=== PATIENT | male | born 1975 ===

== ENCOUNTER 2021-03-03 08:46 | Outpatient (REF) | payer BC, SELFPAY ==
--- NOTE | ~2021-03-03 | XR_ITS ---
EXAMINATION: XR ELBOW, RIGHT CLINICAL INFORMATION: Right elbow pain. Lateral epicondylitis. COMPARISON: None TECHNIQUE: AP, lateral, and oblique views of the right elbow. FINDINGS: There is no visible acute fracture, dislocation or abnormal joint effusion. There is small fine bone fragments adjacent to the lateral and medial epicondyles, XR/XR elbow RT min 3V IMPRESSION: Small bone fragments adjacent to medial lateral epicondyles likely old injury. If patient has superior lateral epicondylitis further evaluation with MRI as an outpatient can be helpful.
== END 2021-03-03 08:47 | disposition home or self-care (01) ==
LOC: HO.HMGCX 08:46
PROVIDERS: PCP Internal Medicine; Visit Provider Nurse Practitioner Family
DX: M25.521 Pain in right elbow (principal); M77.10 Lateral epicondylitis, unspecified elbow
CPT/HCPCS: 73080

== ENCOUNTER → 2021-03-10 07:58 | Outpatient (BNVA) | payer BC, SELFPAY | PROVIDERS: PCP Internal Medicine; Visit Provider Physician Assistant | DX: M77.10 Lateral epicondylitis, unspecified elbow (principal); M25.521 Pain in right elbow | CPT/HCPCS: 20550; J1020 ==

== ENCOUNTER 2021-04-24 14:58 | Outpatient (REF) | payer BC, SELFPAY ==
[2021-04-24 15:20] LABS: MANUAL DIFF FLAG NO
[2021-04-24 15:27] LABS: Basophils Absolute Auto 0.1 X10*3/uL (0.0-0.2); Basophils Percent Auto 0.4 % (0-2); Eosinophils Absolute Auto 0.5 X10*3/uL (0.0-0.4); Eosinophils Percent Auto 4.1 % (0-4); Hematocrit 45.3 % (42-52); Hemoglobin 15.2 g/dl (14.0-18.0); Imm Gran Abs Auto 0.06 X10*3/uL (0.00-0.03); Imm Gran Pct Auto 0.5 % (0.0-0.4); Lymphocytes Absolute Auto 2.8 X10*3/uL (1.2-4.9); Lymphocytes Percent Auto 23.1 % (20-40); Mean Corpuscular HGB Conc 33.6 g/dl (31.0-36.0); Mean Corpuscular Hemoglobin 29.9 pg (27.0-33.0); Mean Corpuscular Volume 89.2 fL (80-98); Mean Platelet Volume 10.6 fL (9.4-12.4); Monocytes Percent Auto 8.4 % (2-11); Neutrophils Absolute Auto 7.7 X10*3/uL (2.0-8.3); Neutrophils Percent Auto 63.5 % (45-73); Platelet Count 209 X10*3/uL (160-400); Red Blood Count 5.08 X10*6/uL (4.60-5.80); Red Cell Distribution Width 13.4 % (11.0-16.0); White Blood Count 12.2 X10*3/uL (4.8-10.8)
[2021-04-24 15:36] LABS: Estimated Average Glucose 229 mg/dL; Hemoglobin A1c % 9.6 %
[2021-04-24 16:12] LABS: Alanine Aminotransferase 31 U/L (0-40); Albumin Level 4.1 g/dL (3.5-5.0); Alkaline Phosphatase 92 U/L (39-117); Anion Gap 13 (12-20); Aspartate Amino Transferase 24 U/L (5-37); Bilirubin Total 0.5 mg/dL (0.0-1.0); Blood Urea Nitrogen 14 mg/dL (9-16); Calcium 9.3 mg/dL (8.4-10.2); Carbon Dioxide 26 mmol/L (22-29); Chloride 103 mmol/L (96-108); Cholesterol 181 mg/dL; Estimated Glomerular Filt Rate > 60; Glucose Random 222 mg/dL (60-115); HDL Cholesterol 26 mg/dL; LDL Cholesterol Calculated 88 mg/dl; Sodium 138 mmol/L (135-145); Total Protein 7.2 g/dL (6.5-8.0); Triglycerides 337 mg/dL
[2021-04-24 16:18] LABS: B Type Natriuretic Peptide < 10 pg/mL (<100)
[2021-04-24 16:35] LABS: Free T4 (Free Thyroxine) 0.94 ng/dL (0.71-1.85); Thyroid Stimulating Hormone 0.51 uIU/mL (0.32-4.0)
[2021-04-24 16:45] LABS: Folate 15.3 ng/mL (> or = 4.0); Vitamin B12 501 pg/mL (200-900)
== END 2021-04-24 14:59 | disposition home or self-care (01) ==
LOC: HO.LAB 14:58
PROVIDERS: PCP Internal Medicine; Visit Provider Internal Medicine
DX: E78.00 Pure hypercholesterolemia, unspecified (principal)
CPT/HCPCS: 36415; 80053; 80061; 82607; 82746; 83036; 83880; 84439; 84443; 85025

== ENCOUNTER 2021-05-31 08:31 | Emergency (ER) | payer BC, SELFPAY ==
--- NOTE | ~2021-05-31 | CT_ITS ---
EXAMINATION: CT HEAD WITHOUT CONTRAST CLINICAL INFORMATION: Left-sided facial droop COMPARISON: None TECHNIQUE: Contiguous axial imaging was performed from the skull base to vertex without intravenous administration of contrast. This CT examination was performed using dose optimization techniques as appropriate, variously including the following: *Automated exposure control *Adjustment of mA and/or kV according to patient size (this includes techniques or standardized protocols for targeted exams where dose is matched to indication/reason for exam; i.e. extremities or head) *Use of iterative reconstruction technique DLP: 843 mGy-cm FINDINGS: There is no evidence of acute intracranial hemorrhage or territorial infarction. No abnormal mass effect or midline shift is seen. [place] to white matter differentiation is well preserved. No extra-axial fluid collections are identified. The ventricles are normal in size. There is no abnormal attenuation within the brain parenchyma. The osseous structures and soft tissues are normal. The mastoid air cells and visualized portions of the paranasal sinuses are well aerated. CT/CT head/brain wo con IMPRESSION: No acute intracranial process seen.
[2021-05-31 08:35] VITALS: BP 147/92; PULSE 81; RESP 12; TEMP 36.9; O2SAT 99; BMI 40.6
--- NOTE | 2021-05-31 08:50 | ECG_ITS ---
Test Reason : WEAKNESS Blood Pressure : / mmHG Vent. Rate : 080 BPM Atrial Rate : 080 BPM P-R Int : 166 ms QRS Dur : 088 ms QT Int : 388 ms P-R-T Axes : 046 038 034 degrees QTc Int : 447 ms Normal sinus rhythm Normal ECG No previous ECGs available Referred By: Hue Encarnacion Electronically Signed By:JAMES MONTERROSO
[2021-05-31 08:51] VITALS: BP 162/88; PULSE 87; TEMP 36.8; O2SAT 99
--- NOTE | 2021-05-31 08:51 | ED.NEUROSD ---
HPI - Neuro Symptoms/Deficit General Chief Complaint: General Medical Stated Complaint: Numbness in face Time Seen by Provider: 05/31/21 08:46 Source: patient Mode of arrival: ambulatory Limitations: no limitations History of Present Illness HPI Narrative: 46 yo male with hx of HTN, HPL, s/p PCI with two stents on aspirin, GERD, hidradenitis - on chronic doxy 100mg BID, comes in with L sided total facial droop since Wednesday, no trauma, denies prior episodes, no other complaints, no known tick exposures Onset (ago): day(s) (4) Location: left face History of same: No Severity: severe Quality: weak Relieving factors: none Exacerbating factors: none Context: sudden onset On Anticoagulants: No Associated symptoms: denies other symptoms Treatments Prior to Arrival: none Related Data Home Medications Medication Instructions Recorded Confirmed aspirin 81 mg tablet,delayed 81 mg PO DAILY 03/03/21 04/24/21 release (Enteric Coated Aspirin) atorvastatin 40 mg tablet 40 mg PO DAILY 03/03/21 04/24/21 doxycycline hyclate 100 mg capsule 100 mg PO BID 03/03/21 04/24/21 metoprolol succinate 25 mg 25 mg PO DAILY 03/03/21 04/24/21 tablet,extended release 24 hr Previous Rx's Medication Instructions Recorded pantoprazole 40 mg tablet,delayed 40 mg PO DAILY #90 tab 03/20/21 release prednisone 20 mg tablet 60 mg PO DAILY 4 Days #12 tab 05/31/21 valacyclovir 1 gram tablet 1,000 mg PO BID 7 Days #14 tab 05/31/21 Allergies Allergy/AdvReac Type Severity Reaction Status Date / Time No Known Allergies Allergy Verified 04/24/21 13:47 Review of Systems Review of Systems: Constitutional : No Weight loss, No Fever, No Chills, No Fatigue, No Malaise ENT/Mouth : No sore throat, No Rhinorrhea Eyes: No Eye Pain, No Swelling, No Redness Cardiovascular : No Chest Pain, No SOB, No Dyspnea on Exertion, No Orthopnea, No Edema, No Palpitations Respiratory : No Cough, No Sputum, No Wheezing Gastrointestinal : No Nausea, No Vomiting, No Diarrhea, No Constipation, No abdominal Pain, No Hematochezia, No Melena Genitourinary : No Dysuria, No Urinary Frequency, No Hematuria, Musculoskeletal : No joint pain, No Myalgias, No Joint Swelling Skin : No Skin Lesions, No rash Neuro : pos Weakness, No Numbness, No Dizziness, No Headache Psych : No Anxiety/Panic, No Depression Heme/Lymph: No Bruising, No Bleeding,No Lymphadenopathy Endocrine : No Polyuria, No Polydipsia All other systems reviewed and are negative [facility] Past Medical History Attestation statement: The following information was validated with the patient. Medical History Axillary hidradenitis suppurativa CAD (coronary artery disease) GERD (gastroesophageal reflux disease) Hypercholesterolemia Hypertension Surgical History History of shoulder surgery History of tonsillectomy Left rotator cuff tear Status post hip surgery Stented coronary artery Family History Family History (Updated 04/24/21 @ 14:32 by Mohamud Muro MD) Father Heart attack Social History Social History Housing: House Alcohol intake: current Alcohol intake frequency: a few times a month Alcohol type: beer Patient Tobacco Use Status: Current everyday Tobacco user Tobacco use type: Cigarette Cigarette Packs Per Day: 1 Years Smoked: started 20 years e-Cigarette/Vaping Use: Never Used Second Hand Smoke Exposure: No Use of substances other than those prescribed or required for medical reasons: No Advance Directives: Yes Advance Directives Information Provided: Yes Advance Directives on File: No service: No Current occupational status: employed Current occupation: right handed Physical Exam Vital Signs: Vital Signs: Last Vital Signs Temp 98.3 F 05/31/21 08:51 Pulse 87 05/31/21 08:51 Resp 12 05/31/21 08:35 BP 162/88 H 05/31/21 08:51 Pulse Ox 99 05/31/21 08:51 Body Mass Index 40.6 Appearance: Alert. Oriented X3. No acute distress. Eyes: Pupils equal, round and reactive to light. ENT: Pharynx normal. TMs normal Neck: Normal inspection. Neck supple. CVS: Normal heart rate and rhythm. Pulses normal. Respiratory: No respiratory distress. Breath sounds normal. Abdomen: Soft and nontender. Skin: Skin warm and dry. Normal skin color. Normal skin turgor. Extremities: No lower extremity edema. No calf ttp Neuro: Oriented X 3. Total paralysis of L side of face involving forehead. No sensory deficit. Course Course Course Narrative: stable for DC, negative workup treat for bells palsy refer to PCP MDM - Neuro Symptoms/Deficit MDM Narrative Medical decision making narrative: 46 yo male with hx of HTN, HPL, s/p PCI with two stents on aspirin, GERD, hidradenitis - on chronic doxy 100mg BID, comes in with L sided total facial droop since Wednesday, no trauma, denies prior episodes, no other complaints, no known tick exposures at this time will obtain labs, lyme test, CT head though suspect bells palsy, start on steroids, already on doxy if this is lyme disease, discussed care of eye and mouth during flare. Lab Data Result diagrams: 05/31/21 09:16 05/31/21 09:16 Labs: Lab Results 05/31/21 05/31/21 Range/Units 09:16 09:16 WBC 12.1 H (4.8-10.8) X10*3/uL RBC 4.83 (4.60-5.80) X10*6/uL Hgb 14.4 (14.0-18.0) g/dl Hct 43.3 (42-52) % MCV 89.6 (80-98) fL MCH 29.8 (27.0-33.0) pg MCHC 33.3 (31.0-36.0) g/dl RDW 13.0 (11.0-16.0) % Plt Count 197 (160-400) X10*3/uL MPV 10.4 (9.4-12.4) fL Immature Gran % (Auto) 0.6 H (0.0-0.4) % Neut % (Auto) 63.9 (45-73) % Lymph % (Auto) 24.3 (20-40) % [place] % (Auto) 7.8 (2-11) % Eos % (Auto) 3.0 (0-4) % Baso % (Auto) 0.4 (0-2) % Lymph # (Auto) 2.9 (1.2-4.9) X10*3/uL [place] # (Auto) 1.0 (0.1-1.2) X10*3/uL Eos # (Auto) 0.4 (0.0-0.4) X10*3/uL Baso # (Auto) 0.1 (0.0-0.2) X10*3/uL Abs Immat Gran (auto) 0.07 H (0.00-0.03) X10*3/uL Absolute Neuts (auto) 7.8 (2.0-8.3) X10*3/uL Absolute Nucleated RBC 0.000 (0.0-0.012) X10*3/uL Nucleated RBC % (auto) 0.0 (0.0-0.2) /100WBC Sodium 139 (135-145) mmol/L Potassium 4.0 (3.3-5.1) mmol/L Chloride 105 (96-108) mmol/L Carbon Dioxide 27 (22-29) mmol/L Anion Gap 11 L (12-20) BUN 11 (9-16) mg/dL Creatinine 0.78 (0.5-1.4) mg/dL Estim Creat Clear Calc 167.2 Estimated GFR > 60 Random Glucose 146 H (60-115) mg/dL Calcium 8.9 (8.4-10.2) mg/dL Total Bilirubin 0.8 (0.0-1.0) mg/dL Direct Bilirubin 0.3 (0.0-0.5) mg/dL AST 18 (5-37) U/L ALT 26 (0-40) U/L Alkaline Phosphatase 81 (39-117) U/L Total Protein 6.6 (6.5-8.0) g/dL Albumin 3.7 (3.5-5.0) g/dL ECG Data Attestation: I personally reviewed and interpreted this ECG as follows: ECG interpretation date: 05/31/21 ECG interpretation time: 09:16 Interpretation: Rate: 80 Rhythm: NSR [place]: normal Normal P waves. Normal DAVEY. Normal QRS complex. ST T wave : normal no ALANA qTC: normal prior studies: no acute ischemia The study has been interpreted contemporaneously by me. Discharge Plan Discharge Clinical Impression: Grigsby's palsy Patient Disposition: Home, Self-Care Instructions: Grigsby Palsy (ED) Additional Instructions: return to ED for any worsening symptoms or concerns use lubricating eye drops to prevent irrritation continue your doxycycline, follow up with your PCP Prescriptions: New prednisone 20 mg tablet 60 mg PO DAILY 4 Days Qty: 12 RF: 0 valacyclovir 1 gram tablet 1,000 mg PO BID 7 Days Qty: 14 RF: 0 No Action pantoprazole 40 mg tablet,delayed release (DR/EC) 40 mg PO DAILY Qty: 90 RF: 0 doxycycline hyclate 100 mg capsule 100 mg PO BID RF: 0 atorvastatin 40 mg tablet 40 mg PO DAILY RF: 0 metoprolol succinate 25 mg tablet extended release 24 hr 25 mg PO DAILY RF: 0 aspirin [Enteric Coated Aspirin] 81 mg tablet,delayed release (DR/EC) 81 mg PO DAILY RF: 0 Referrals: Po,Mohamud Lynn MD [Primary Care Provider] - 2 days (Wednesday)
[2021-05-31] MEDS: predniSONE 20 MG TABLET 60 MG PO (08:56)
[2021-05-31 09:20] LABS: MANUAL DIFF FLAG NO
[2021-05-31 09:23] LABS: Basophils Absolute Auto 0.1 X10*3/uL (0.0-0.2); Basophils Percent Auto 0.4 % (0-2); Eosinophils Absolute Auto 0.4 X10*3/uL (0.0-0.4); Hematocrit 43.3 % (42-52); Hemoglobin 14.4 g/dl (14.0-18.0); Imm Gran Abs Auto 0.07 X10*3/uL (0.00-0.03); Imm Gran Pct Auto 0.6 % (0.0-0.4); Lymphocytes Absolute Auto 2.9 X10*3/uL (1.2-4.9); Lymphocytes Percent Auto 24.3 % (20-40); Mean Corpuscular HGB Conc 33.3 g/dl (31.0-36.0); Mean Corpuscular Hemoglobin 29.8 pg (27.0-33.0); Mean Corpuscular Volume 89.6 fL (80-98); Mean Platelet Volume 10.4 fL (9.4-12.4); Monocytes Percent Auto 7.8 % (2-11); Neutrophils Absolute Auto 7.8 X10*3/uL (2.0-8.3); Neutrophils Percent Auto 63.9 % (45-73); Platelet Count 197 X10*3/uL (160-400); Red Blood Count 4.83 X10*6/uL (4.60-5.80); White Blood Count 12.1 X10*3/uL (4.8-10.8)
[2021-05-31 09:59] LABS: Alanine Aminotransferase 26 U/L (0-40); Albumin Level 3.7 g/dL (3.5-5.0); Alkaline Phosphatase 81 U/L (39-117); Anion Gap 11 (12-20); Aspartate Amino Transferase 18 U/L (5-37); Bilirubin Direct 0.3 mg/dL (0.0-0.5); Bilirubin Total 0.8 mg/dL (0.0-1.0); Blood Urea Nitrogen 11 mg/dL (9-16); Calcium 8.9 mg/dL (8.4-10.2); Carbon Dioxide 27 mmol/L (22-29); Chloride 105 mmol/L (96-108); Creatinine Clr Calc Pharmacy 167.2; Estimated Glomerular Filt Rate > 60; Glucose Random 146 mg/dL (60-115); Sodium 139 mmol/L (135-145); Total Protein 6.6 g/dL (6.5-8.0)
[2021-05-31 10:10] VITALS: BP 153/91; PULSE 79; RESP 18; O2SAT 99
[2021-06-02 16:52] LABS: Lyme Abs Screen <0.90 index
== END 2021-05-31 10:13 | disposition home or self-care (01) ==
PROVIDERS: Emergency Provider Emergency Medicine; PCP Internal Medicine
DX: G51.0 Bell's palsy (principal); E11.9 Type 2 diabetes mellitus without complications; I10 Essential (primary) hypertension; E78.00 Pure hypercholesterolemia, unspecified; F17.210 Nicotine dependence, cigarettes, uncomplicated; Z79.02 Long term (current) use of antithrombotics/antiplatelets; Z79.82 Long term (current) use of aspirin; Z79.899 Other long term (current) drug therapy
CPT/HCPCS: 36415; 70450; 80048; 80076; 85025; 86617; 86618; 93005; 99284

== ENCOUNTER 2021-09-15 08:58 | Outpatient (REF) | payer BC, SELFPAY ==
[2021-09-15 09:18] LABS: MANUAL DIFF FLAG NO
[2021-09-15 09:59] LABS: Basophils Percent Auto 0.3 % (0-2); Eosinophils Absolute Auto 0.4 X10*3/uL (0.0-0.4); Eosinophils Percent Auto 3.1 % (0-4); Hematocrit 44.8 % (42.0-52.0); Hemoglobin 14.7 g/dl (14.0-18.0); Imm Gran Abs Auto 0.07 X10*3/uL (0.00-0.03); Imm Gran Pct Auto 0.6 % (0.0-0.4); Mean Corpuscular HGB Conc 32.8 g/dl (31.0-36.0); Mean Corpuscular Hemoglobin 29.7 pg (27.0-33.0); Mean Corpuscular Volume 90.5 fL (80.0-98.0); Mean Platelet Volume 10.4 fL (9.4-12.4); Monocytes Absolute Auto 0.9 X10*3/uL (0.1-1.2); Monocytes Percent Auto 7.1 % (2-11); Neutrophils Percent Auto 64.9 % (45-73); Platelet Count 228 X10*3/uL (160-400); Red Blood Count 4.95 X10*6/uL (4.60-5.80); Red Cell Distribution Width 13.3 % (11.0-16.0); White Blood Count 12.3 X10*3/uL (4.8-10.8)
[2021-09-15 10:26] LABS: Anion Gap 13 (12-20); Blood Urea Nitrogen 15 mg/dL (9-16); Calcium 8.9 mg/dL (8.4-10.2); Carbon Dioxide 27 mmol/L (22-29); Chloride 104 mmol/L (96-108); Estimated Glomerular Filt Rate > 60; Glucose Random 170 mg/dL (60-115); Potassium 4.5 mmol/L (3.3-5.1); Sodium 139 mmol/L (135-145)
[2021-09-15 10:44] LABS: HBS Num1 1.78 mIU/mL (0-7.99); HIV AB/AG Nonreactive (Nonreactive); HIV Num 1 0.06 S/CO (0.00-0.99); Hepatitis B Surface Antigen Negative (Negative); ~HepC Num1 0.12 S/CO (0.00-0.79); ~Hepatitis B Surface Antibody NONREACTIVE (Nonreactive); ~Hepatitis C Antibody Nonreactive (Nonreactive)
[2021-09-16 18:02] LABS: Hepatitis B Viral DNA Qn - cp <1.00 NOT DETECTED Log IU/mL (NOT DETECTED); Hepatitis B Viral DNA Qn-IU/mL <10 NOT DETECTED IU/mL (NOT DETECTED)
[2021-09-17 20:27] LABS: TS Negative Control Passed; TS Panel A 0; TS Panel B 2; TS Positive Control Passed; TSpotTB Negative (Negative)
== END 2021-09-15 08:59 | disposition home or self-care (01) ==
LOC: HO.LAB 08:58
PROVIDERS: PCP Internal Medicine; Visit Provider Dermatology
DX: L73.2 Hidradenitis suppurativa (principal); Z79.899 Other long term (current) drug therapy
CPT/HCPCS: 36415; 80048; 85025; 86481; 86706; 86803; 87340; 87389; 87517

== ENCOUNTER 2022-03-06 08:33 | Outpatient (REF) | payer BC, SELFPAY | END 2022-03-06 08:34 | LOC: HO.LNP 08:33 | PROVIDERS: PCP Internal Medicine; Referring Provider Internal Medicine; Visit Provider Surgery | DX: L02.31 Cutaneous abscess of buttock (principal); E66.01 Morbid (severe) obesity due to excess calories; I10 Essential (primary) hypertension; K21.9 Gastro-esophageal reflux disease without esophagitis; E11.65 Type 2 diabetes mellitus with hyperglycemia; E78.00 Pure hypercholesterolemia, unspecified; F17.210 Nicotine dependence, cigarettes, uncomplicated; F17.290 Nicotine dependence, other tobacco product, uncomplicated; Z68.41 Body mass index [BMI] 40.0-44.9, adult | CPT/HCPCS: 10060; 10061; 87071; 87205 ==

== ENCOUNTER → 2022-03-09 08:20 | Outpatient (BNVA) | payer BC, SELFPAY | PROVIDERS: PCP Internal Medicine; Referring Provider Internal Medicine; Visit Provider Surgery | DX: Z13.89 Encounter for screening for other disorder (principal) ==

== ENCOUNTER 2022-03-09 15:18 | Day surgery (SDC) | payer BC, SELFPAY ==
[2022-03-09] VITALS (11 sets, daily range): BP systolic 97–131; BP diastolic 51–72; PULSE 88–117; RESP 18–24; TEMP 36.1–37.8; O2SAT 93–99; BMI 42.4
--- NOTE | 2022-03-09 15:26 | MHC.SHP ---
Pre-Procedural Eval Section A Date of Service: 03/09/22 The patient is an INPATIENT: No Changes since office visit: Yes Patient answered all questions The History & Physical has been completed within 30 days and I have reviewed it.: Yes Section B Chief Complaint: Cutaneous abscess of buttock Allergies: Allergies Allergy/AdvReac Type Severity Reaction Status Date / Time No Known Allergies Allergy Verified 03/07/22 09:05 Plan Diagnosis/Plan: Unchanged I have reviewed the history and physical and performed a pertinent physical examination on my patient. No changes have occurred unless specified.
[2022-03-09] MEDS: ceFAZolin Sodium 3 GM in 0.9 % Sodium Chloride 100 ML IV (16:30)
--- NOTE | 2022-03-09 16:36 | P.CONAN_ITS ---
[facility] Active Problems Active Problems: All Active Problems (Updated 03/05/22 @ 15:29 by Yohan Wahl MD) Gluteal abscess (Acute) Grigsby's palsy (Acute) Type 2 diabetes mellitus with hyperglycemia (Acute) Obesity (Acute) Tobacco abuse (Acute) Hypercholesterolemia (Acute) Hypertension (Acute) Elbow pain, right (Acute) Epicondylitis, lateral (Acute) Past Medical History Medical History Axillary hidradenitis suppurativa CAD (coronary artery disease) GERD (gastroesophageal reflux disease) Hypercholesterolemia Hypertension Family History Family History Father Heart attack Family history of problems with anesthesia: No Surgical History Surgical History History of shoulder surgery History of tonsillectomy Left rotator cuff tear Status post hip surgery Stented coronary artery History of Problems with Anesthesia: No Social History Social History Housing: House Alcohol intake: current Alcohol intake frequency: a few times a month Alcohol type: beer Patient Tobacco Use Status: Current everyday Tobacco user Tobacco use type: Cigar Cigarette Packs Per Day: 1 Cigarettes Per Day: 20.0 Years Smoked: started 20 years e-Cigarette/Vaping Use: Never Used Second Hand Smoke Exposure: No Use of substances other than those prescribed or required for medical reasons: No Are you DNR?: No Advance Directives: No Advance Directives Information Provided: Yes service: No Current occupational status: employed Current occupation: right handed Meds Allergies Allergy/AdvReac Type Severity Reaction Status Date / Time No Known Allergies Allergy Verified 03/07/22 09:05 Home Medications Medication Instructions Recorded Confirmed Last Taken Type aspirin 81 mg tablet,delayed 81 mg PO DAILY 03/03/21 03/09/22 Unknown History release (Enteric Coated Aspirin) doxycycline hyclate 100 mg capsule 100 mg PO BID 03/03/21 03/09/22 Unknown History adalimumab 40 mg/0.4 mL 40 mg SUBCUT QWEEK 03/05/22 03/09/22 Unknown History subcutaneous pen kit (Humira(CF) Pen) Exam Exam Date and Time: March 09, 2022 1636 Height,Weight and Vital Signs: Height 6 ft Weight 141.974 kg Last Vital Signs Temp 98.1 F 03/09/22 16:16 Pulse 106 H 03/09/22 16:16 Resp 20 03/09/22 16:16 BP 117/69 03/09/22 16:16 Pulse Ox 95 03/09/22 16:16 Airway Mallampati Class: III TM Dist: >3cm Neck ROM: Full Heart: RRR Lungs: cTA Assessment and Plan Final Anesthetic Review Family History of Problems with Anesthesia: No History of Problems with Anesthesia: No NPO: Yes ASA Class: III and Emergency Final Preanesthetic Review: Meds/Allgs Chart Reviewed, Consent Obtained/Reviewed and Anes Risks/Benef Reviewed Patient Risk: Intermediate Procedure Risk: Low Anesthetic Plan Anesthetic Plan: GA Disposition: Standard PACU
[2022-03-09] MEDS: Heparin Sodium,Porcine 5,000 UNIT/ML VIAL 5000 UNIT SUBCUT (16:38)
[2022-03-09 16:42] LABS: Glucose, Whole Blood 234 mg/dL (60-115)
[2022-03-09] MEDS: Insulin Lispro 100 UNIT/ML 3 ML VIAL SUBCUT ×2 (16:47→22:31)
[2022-03-09] MEDS: Albuterol Sulfate (0.083%) 2.5 MG/3 ML VIAL.NEB INHALE (18:32)
[2022-03-09 19:05] LABS: Basophils Absolute Auto 0.1 X10*3/uL (0.0-0.2); Basophils Percent Auto 0.3 % (0-2); Eosinophils Absolute Auto 0.4 X10*3/uL (0.0-0.4); Eosinophils Percent Auto 2.6 % (0-4); Hematocrit 37.2 % (42.0-52.0); Hemoglobin 12.3 g/dl (14.0-18.0); Imm Gran Abs Auto 0.19 X10*3/uL (0.00-0.03); Imm Gran Pct Auto 1.3 % (0.0-0.4); Lymphocytes Absolute Auto 1.9 X10*3/uL (1.2-4.9); Lymphocytes Percent Auto 12.3 % (20-40); MANUAL DIFF FLAG SCAN; Mean Corpuscular HGB Conc 33.1 g/dl (31.0-36.0); Mean Corpuscular Hemoglobin 29.6 pg (27.0-33.0); Mean Corpuscular Volume 89.4 fL (80.0-98.0); Mean Platelet Volume 10.7 fL (9.4-12.4); Monocytes Percent Auto 13.1 % (2-11); Neutrophils Absolute Auto 10.6 x10*3/uL (2.0-8.3); Neutrophils Percent Auto 70.4 % (45-73); Platelet Count 159 X10*3/uL (160-400); Red Blood Count 4.16 X10*6/uL (4.60-5.80); Red Cell Distribution Width 13.1 % (11.0-16.0); SCAN SMEAR FLAG 1; White Blood Count 15.1 X10*3/uL (4.8-10.8)
[2022-03-09 19:11] LABS: Glucose, Whole Blood 195 mg/dL (60-115)
[2022-03-09 19:19] LABS: COVID-19 Test Negative (Negative); IDNOW Serial# 55D5AD1C
[2022-03-09 19:20] LABS: Alanine Aminotransferase 49 U/L (0-40); Albumin Level 3.1 g/dL (3.5-5.0); Alkaline Phosphatase 87 U/L (39-117); Anion Gap 12 (12-20); Aspartate Amino Transferase 33 U/L (5-37); Bilirubin Total 0.8 mg/dL (0.0-1.0); Blood Urea Nitrogen 11 mg/dL (9-16); Carbon Dioxide 22 mmol/L (22-29); Chloride 103 mmol/L (96-108); Creatinine Clr Calc Pharmacy 151.7; Estimated Glomerular Filt Rate > 60; Glucose Random 232 mg/dL (60-115); Potassium 4.1 mmol/L (3.3-5.1); Sodium 133 mmol/L (135-145); Total Protein 6.2 g/dL (6.5-8.0)
--- NOTE | 2022-03-09 19:23 | PM.OP ---
Brief Operative Note Date of Service: 03/09/22 Pre-op diagnosis: Left gluteal and perineal/perianal/perirectal abscess Post-op diagnosis: same Procedure: Incision and drainage, complex gluteal and perineal/perirectal abscess Surgeon: James Awad MD Anesthesia: GETA and local Was an Machining Supervisor used for this Procedure?: No Estimated blood loss (mL): 5 Pathology: none sent Condition: stable Disposition: observation
--- NOTE | 2022-03-09 19:25 | P.OP_ITS ---
Operative Note Operative Note Date of Service: 03/09/22 Narrative: Preop diagnosis: Left gluteal and perineal abscess Postop diagnose: Same Procedure complex incision and drainage with drain placement Surgeon: James Awad MD Anesthesia: General endotracheal Local: Lidocaine 1% with epi/bupivacaine 0.25% 50 50 mix EBL 5 cc Specimens: Culture of abscesses Indications: This is a 47-year-old gentleman with a history of type 2 diabetes, smoking, on who presented on Wednesday with what appeared to be an isolated left gluteal abscess near his pilonidal cyst. During incision and drainage, loculated abscesses were noted but the patient was clinically improved. However, over the weekend, after removing his packing, he had progression of pain in his perineum and came to the office for follow-up and was noted to have a large mass of inflammation involving his perineum and left medial buttock. Gross purulence was being expressed from the incision and drainage site as well as from the perineum so I recommended operative drainage since I could not adequately examine him in the office due to pain reasons and his body habitus. I reviewed the inherent risks of bleeding, infection, need for another procedure. He seemed understand and wanted to proceed. Procedure note: After an appropriate time-out, the patient was placed supine on the table. 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 He was induced in general endotracheal anesthesia administered with excellent effect. He was then carefully positioned in left lateral decubitus position with an axillary roll and padding of bony prominences. He was then secured to the table with multiple straps and tape. His right buttock was taped away from his left and he was prepped with Betadine. He was then draped in the usual manner for surgery. Preemptive local was infiltrated and the prior I and D site at the upper/mid anton cleft that was expressing pus. Cultures were obtained. Additional fluctuance inferior towards the anus was noted, aspiration with a 20 gauge needle confirmed additional purulence and additional local was infiltrated. A separate stab incision was made with the scalpel, a tonsil snap inserted and loculations were broken expressing more purulence. And the perineum in the midline, additional fluctuance was noted, and needle aspiration confirmed additional purulence. A 3rd I and D site was made with the scalp, a tonsil snap used to dissect deep and posteriorly and copious amounts of sterile saline were used which caused irrigation to come out of the other 2 I and D sites. The le ngth of the abscess pocket which was now all connected was approximately 16 cm. After the irrigation ran clear, a quarter-inch [place] was cut in 6 cm pieces which were placed deep into the subcutaneous tissues and sutured to the skin with 2-0 silk sutures. The area was inspected for hemostasis which was good, the perineum and buttocks carefully washed, dried fluffs and ABDs followed by mesh underwear were applied. Patient tolerated the procedure well and was sent to PACU in stable condition. At the request of the patient, I contacted his brother Femi at [phone] to apprise him of the operation. I also explained that given the patient's Humira, type 2 diabetes, and the degree of the infection, that we would be keeping him overnight to provide IV antibiotics since this is the type of infection that could progress. I have also obtained a consultation from the hospitalist who recommended addition of vancomycin to the Zosyn I had ordered.
[2022-03-09 19:27] LABS: SLIDE REVIEW VERIFIED
[2022-03-09 19:43] LABS: Lactic Acid 1.2 mmol/L (0.5-2.0)
--- NOTE | 2022-03-09 20:01 | PM.EVENT ---
Event Note Date of Service: 03/09/22 Event Note: The patient's lab show a normal lactic acid at 1.2. He has a leukocytosis to 15 K which is expected given the complex perineal and gluteal abscesses. No other significant electrolyte anomalies or found. Abnormal LFTs are likely secondary to his obesity and fatty liver, will trend. Given his normal lactic acid, his fever is likely secondary to his abscess and not sepsis. I do not clinically see an indication for blood culture given this normal response to incision and drainage of complex abscess.
[2022-03-09 20:38] LABS: Glucose, Whole Blood 244 mg/dL (60-115)
--- NOTE | 2022-03-09 20:43 | PHA.PROG ---
Admission Date/Time: 03/09/22 Indication: SKIN/SKIN STRUCTURE Weight in k.974 kg Adjusted body weight in K.3 [place] body weight in K.6 KG Obesity Dosing Indication % IBW: Serum Creatinine - Last 168 Hours 03/09/22 18:51 Creatinine 0.87 Estimated CrCl and GFR - Last 168 Hours 03/09/22 18:51 Estim Creat Clear Calc 151.7 Estimated GFR > 60 Vancomycin Loading Dose: 1500 MG X 1 Current Vancomycin Dosing Regimen: 1000 MG Q12H Vancomycin Monitoring using AUC goal of 400 - 600 range with trough as surrogate marker: PREDICTED AUC OF 444, TROUGH 12.2 Date and Time for next Vancomycin Level to be drawn: 03/11/22 @0700 Pharmacist Comments on Vancomycin Plan: OBESE MODEL USED Vancomycin dosing will take advantage of [employer] have it! as a clinical decision support tool that uses Bayesian modeling to calculate individual patient's pharmacokinetic parameters and forecast the patient's drug concentration time course with the target goal AUC 24 range of 400 - 600 mg/L/hr.
--- NOTE | 2022-03-09 20:51 | PHA.MEDREC ---
Pharmacy Consult ? Medication Reconciliation Pharmacy has completed the medication reconciliation. No remarkable issues.
[2022-03-09] MEDS: Lactated Ringers 1,000 ML 125 ML IVCONT (22:30)
[2022-03-09] MEDS: Docusate Sodium 100 MG CAPSULE 200 MG PO (22:30)
[2022-03-09] MEDS: Piperacillin Sodium/Tazobactam 3.375 GM in 0.9 % Sodium Chloride 50 ML IV (22:30)
[2022-03-10] VITALS: BP 104/52; PULSE 87; RESP 17; TEMP 37.1; O2SAT 99
[2022-03-10] MEDS: vancomycin HCL 1,500 MG in 0.9 % Sodium Chloride 500 ML 333.33 MG IV (01:21)
[2022-03-10] MEDS: Heparin Sodium,Porcine 5,000 UNIT/ML VIAL 5000 UNIT SUBCUT ×2 (01:24→05:47)
[2022-03-10 04:00] VITALS: BP 110/62; PULSE 77; RESP 17; TEMP 36.2; O2SAT 98
[2022-03-10] MEDS: Piperacillin Sodium/Tazobactam 3.375 GM in 0.9 % Sodium Chloride 50 ML IV ×2 (04:02→08:21)
[2022-03-10 05:16] LABS: Estimated Average Glucose 220 mg/dL; Hemoglobin A1c % 9.3 %
[2022-03-10 06:56] LABS: Basophils Percent Auto 0.3 % (0-2); Eosinophils Absolute Auto 0.5 X10*3/uL (0.0-0.4); Eosinophils Percent Auto 3.8 % (0-4); Hematocrit 37.9 % (42.0-52.0); Hemoglobin 12.3 g/dl (14.0-18.0); Imm Gran Abs Auto 0.21 X10*3/uL (0.00-0.03); Imm Gran Pct Auto 1.8 % (0.0-0.4); Lymphocytes Absolute Auto 1.6 X10*3/uL (1.2-4.9); Lymphocytes Percent Auto 13.6 % (20-40); MANUAL DIFF FLAG SCAN; Mean Corpuscular HGB Conc 32.5 g/dl (31.0-36.0); Mean Corpuscular Hemoglobin 29.4 pg (27.0-33.0); Mean Corpuscular Volume 90.7 fL (80.0-98.0); Mean Platelet Volume 10.8 fL (9.4-12.4); Monocytes Absolute Auto 1.6 X10*3/uL (0.1-1.2); Neutrophils Absolute Auto 8.1 x10*3/uL (2.0-8.3); Neutrophils Percent Auto 67.5 % (45-73); Platelet Count 149 X10*3/uL (160-400); Red Blood Count 4.18 X10*6/uL (4.60-5.80); Red Cell Distribution Width 13.1 % (11.0-16.0); SCAN SMEAR FLAG 1
[2022-03-10 07:13] LABS: Anion Gap 10 (12-20); Blood Urea Nitrogen 10 mg/dL (9-16); Calcium 8.2 mg/dL (8.4-10.2); Carbon Dioxide 28 mmol/L (22-29); Chloride 102 mmol/L (96-108); Creatinine Clr Calc Pharmacy 151.7; Estimated Glomerular Filt Rate > 60; Glucose Random 219 mg/dL (60-115); Potassium 4.2 mmol/L (3.3-5.1); Sodium 136 mmol/L (135-145)
[2022-03-10 07:14] VITALS: BP 122/66; PULSE 83; RESP 18; TEMP 36.3; O2SAT 98
[2022-03-10 07:20] LABS: Glucose, Whole Blood 203 mg/dL (60-115)
--- NOTE | 2022-03-10 07:22 | HE.PHANOTE ---
leslie bourgeois Continue current dose, SCR stable, trough due @0700 on 03/11
--- NOTE | 2022-03-10 07:30 | PM.PNGS ---
Subjective Subjective Date of Service: 03/10/22 Patient reports: no new complaints, feels better, flatus and no bowel movement Interval history: The patient reports resolution of the pain he was experiencing in the office yesterday morning. He reports some burning in his perineum. He has not been up to walk or shower. He otherwise denies any headache, visual changes, chest pain, abdominal pain, nausea or vomiting. No new complaints. Physical Exam Vital Signs: Vital Signs: Last Vital Signs Temp 97.3 F 03/10/22 07:14 Pulse 83 03/10/22 07:14 Resp 18 03/10/22 07:14 BP 122/66 03/10/22 07:14 Pulse Ox 98 03/10/22 07:14 BMI result Body Mass Index 42.4 Dressings are stained with bloody pus but intact Objective Data Active Medications Albuterol Sulfate (Albuterol Sulfate (0.083%) 2.5 Mg/3 Ml Vial.Neb) 2.5 mg INHALE Q2H PRN PRN Reason: Dyspnea Last Admin: 03/09/22 18:32 Dose: 2.5 mg Documented by: MILAN Atorvastatin Calcium (Atorvastatin Calcium 40 Mg Tablet) 40 mg PO DAILY [facility] Dextrose (Dextrose 50 % 25 Gm/50 Ml Syringe) 25 gm IVPUSH Q15M PRN; Protocol PRN Reason: per Hypoglycemia Standing Ord. Dextrose (Dextrose 50 % 25 Gm/50 Ml Syringe) 25 gm IVPUSH Q15M PRN; Protocol PRN Reason: per Hypoglycemia Standing Ord. Docusate Sodium (Docusate Sodium 100 Mg Capsule) 200 mg PO BID [facility] Last Admin: 03/09/22 22:30 Dose: 200 mg Documented by: MOODY Fentanyl (Fentanyl Citrate/Pf 100 Mcg/2 Ml Vial) 50 mcg IVPUSH Q5M PRN; Protocol PRN Reason: Pain, Severe (Pain Scale 7-10) Glucose (Glucose Gel 15 Gm Gel..Gram.) 15 gm PO Q15M PRN; Protocol PRN Reason: per Hypoglycemia Standing Ord. Glucose (Glucose Gel 15 Gm Gel..Gram.) 15 gm PO Q15M PRN; Protocol PRN Reason: per Hypoglycemia Standing Ord. Heparin Sodium (Porcine) (Heparin Sodium,Porcine 5,000 Unit/Ml Vial) 5,000 unit SUBCUT Q8H [facility] Last Admin: 03/10/22 05:47 Dose: 5,000 unit Documented by: TONEY Piperacillin Sod/Tazobactam (Sod 3.375 gm/ Sodium Chloride) 50 mls @ 100 mls/hr IV Q6H [facility] Last Infusion: 03/10/22 04:39 Dose: 0 mls/hr Documented by: TONEY Vancomycin HCl 1,000 mg/ (Sodium Chloride) 270 mls @ 270 mls/hr IV Q12H [facility] Lactated Ringer's (Lr) 1,000 mls @ 125 mls/hr IVCONT .Q8H [facility] Last Admin: 03/10/22 05:49 Dose: Not Given Documented by: TONEY Non-Admin Reason: IV Running Insulin Human Lispro (Insulin Lispro 100 Unit/Ml 3 Ml Vial) 0 unit SUBCUT QIDACHS [facility]; Protocol Last Admin: 03/09/22 22:31 Dose: 4 unit Documented by: MOODY Metoprolol Succinate (Metoprolol Succinate Er 25 Mg Tab.Er.24h) 25 mg PO BEDTIME [facility]; Protocol Ondansetron HCl (Ondansetron Hcl 4 Mg/2 Ml Vial) 4 mg IVPUSH ONCE PRN PRN Reason: Nausea and Vomiting Oxycodone HCl (Oxycodone Hcl Immed Release 5 Mg Tablet) 5 mg PO ONCE PRN PRN Reason: Pain, Severe (Pain Scale 7-10) Pharmacy Consult (Consult Rx Vancomycin Dosing) 1 each MISCELLANE DAILY PRN PRN Reason: Consult order Sodium Chloride (0.9 % Sodium Chloride Flush 3 Ml Syringe) 3 ml IVFLUSH QSALFT [facility] Last Admin: 03/10/22 01:25 Dose: Not Given Documented by: TONEY Non-Admin Reason: IV Running Sodium Chloride (0.9 % Sodium Chloride Flush 3 Ml Syringe) 3 ml IVFLUSH QSALFT [facility] Last Admin: 03/10/22 01:25 Dose: Not Given Documented by: TONEY Non-Admin Reason: IV Running Sodium Chloride (0.9 % Sodium Chloride Flush 3 Ml Syringe) 3 ml IVFLUSH QSHIFT [facility] Last Admin: 03/10/22 01:25 Dose: Not Given Documented by: TONEY Non-Admin Reason: IV Running Labs CBC & Chem 7: 03/10/22 06:32 03/10/22 06:32 Labs: Laboratory Results - last 24 hr 03/09/22 03/09/22 03/09/22 16:37 18:32 18:51 MCV MCH MCHC RDW Plt Count MPV Immature Gran % (Auto) Neut % (Auto) Lymph % (Auto) [place] % (Auto) Eos % (Auto) Baso % (Auto) Lymph # (Auto) [place] # (Auto) Eos # (Auto) Baso # (Auto) Abs Immat Gran (auto) Absolute Neuts (auto) Absolute Nucleated RBC Nucleated RBC % (auto) Smear Tech's Comments Anion Gap Estim Creat Clear Calc Estimated GFR POC Glucose 234 H 195 H Random Glucose Estimat Average Glucose 220 Hemoglobin A1c % 9.3 Lactic Acid Calcium Total Bilirubin AST ALT Alkaline Phosphatase Total Protein Albumin COVID-19 (LAURA) COVID-19 Tinychat 03/09/22 03/09/22 03/09/22 18:51 18:51 19:28 MCV 89.4 MCH 29.6 MCHC 33.1 RDW 13.1 Plt Count 159 L D MPV 10.7 Immature Gran % (Auto) 1.3 H Neut % (Auto) 70.4 Lymph % (Auto) 12.3 L [place] % (Auto) 13.1 H Eos % (Auto) 2.6 Baso % (Auto) 0.3 Lymph # (Auto) 1.9 [place] # (Auto) 2.0 H Eos # (Auto) 0.4 Baso # (Auto) 0.1 Abs Immat Gran (auto) 0.19 H Absolute Neuts (auto) 10.6 H Absolute Nucleated RBC 0.000 Nucleated RBC % (auto) 0.0 Smear Tech's Comments VERIFIED Anion Gap 12 Estim Creat Clear Calc 151.7 Estimated GFR > 60 POC Glucose Random Glucose 232 H D Estimat Average Glucose Hemoglobin A1c % Lactic Acid 1.2 Calcium 8.0 L D Total Bilirubin 0.8 AST 33 D ALT 49 H Alkaline Phosphatase 87 Total Protein 6.2 L Albumin 3.1 L COVID-19 (LAURA) COVID-19 Tinychat 03/09/22 03/09/22 03/10/22 20:10 21:35 06:32 MCV MCH MCHC RDW Plt Count MPV Immature Gran % (Auto) Neut % (Auto) Lymph % (Auto) [place] % (Auto) Eos % (Auto) Baso % (Auto) Lymph # (Auto) [place] # (Auto) Eos # (Auto) Baso # (Auto) Abs Immat Gran (auto) Absolute Neuts (auto) Absolute Nucleated RBC Nucleated RBC % (auto) Smear Tech's Comments Anion Gap 10 L Estim Creat Clear Calc 151.7 Estimated GFR > 60 POC Glucose 244 H Random Glucose 219 H Estimat Average Glucose Hemoglobin A1c % Lactic Acid Calcium 8.2 L Total Bilirubin AST ALT Alkaline Phosphatase Total Protein Albumin COVID-19 (LAURA) Negative COVID-19 Clin Com See Note 03/10/22 07:16 MCV MCH MCHC RDW Plt Count MPV Immature Gran % (Auto) Neut % (Auto) Lymph % (Auto) [place] % (Auto) Eos % (Auto) Baso % (Auto) Lymph # (Auto) [place] # (Auto) Eos # (Auto) Baso # (Auto) Abs Immat Gran (auto) Absolute Neuts (auto) Absolute Nucleated RBC Nucleated RBC % (auto) Smear Tech's Comments Anion Gap Estim Creat Clear Calc Estimated GFR POC Glucose 203 H Random Glucose Estimat Average Glucose Hemoglobin A1c % Lactic Acid Calcium Total Bilirubin AST ALT Alkaline Phosphatase Total Protein Albumin COVID-19 (LAURA) COVID-19 Clin Com Procedures Date of Service Date of Service: 03/10/22 Progress Note: A&P Assessment and plan (1) Poorly controlled type 2 diabetes mellitus: Status: Acute (2) Abscess of deep perineal space: Status: Acute (3) Gluteal abscess: Status: Acute (4) Tobacco abuse: Status: Acute (5) Hypercholesterolemia: Status: Acute (6) Hypertension: Status: Acute Plan I reviewed with the patient his noncompliance with metformin, his elevated hemoglobin A1c and increased risk for complications such as perineal infection. His smoking was also discussed. The patient understands the need to follow-up with his PCP for a medication regime to better control his diabetes. For today, the patient will be OOB and shower to thoroughly rinse the perineal and gluteal abscesses. I suspect he will be able to go home today but would like to see his labs. He has follow-up with me tomorrow in the office to remove the Maikel drains. Instructions, bowel regime and abscess drainage care were reviewed and his questions answered. The patient will be discharged on Augmentin, 875 mg p.o. b.i.d. X10 days. His pain is improved and he does not request any narcotics. Time Spent With Patient Time: Total time spent is greater than 50% in coordination of care (as documented) at patient's floor/unit and/or counseling patient: Quality Stroke Does the patient have a stroke diagnosis?: No VTE Prior VTE?: No VTE Risk Level:: Surgical - moderate VTE Device Contraindication: N/A - Device Ordered VTE Drug Contraindication: N/A - Med Ordered
[2022-03-10 07:41] LABS: SLIDE REVIEW VERIFIED
[2022-03-10] MEDS: Atorvastatin Calcium 40 MG TABLET PO (08:20)
[2022-03-10] MEDS: Insulin Lispro 100 UNIT/ML 3 ML VIAL SUBCUT ×2 (08:21→11:29)
[2022-03-10] MEDS: Docusate Sodium 100 MG CAPSULE 200 MG PO (08:21)
[2022-03-10] MEDS: vancomycin HCL 1,000 MG in 0.9 % Sodium Chloride 250 ML 270 MG IV (08:22)
--- NOTE | 2022-03-10 08:35 | HO.POSTANES ---
Post Anesthesia Evaluation Post Anesthesia Evaluation Vital Signs: Vital Signs Temp Pulse Resp BP Pulse Ox 03/10/22 07:14 97.3 F 83 18 122/66 98 03/10/22 04:00 97.2 F 77 17 110/62 98 03/10/22 00:00 98.8 F 87 17 104/52 L 99 Anesthesia: General Mental Status: Awake Pain Control: Satisfactory Nausea/Vomiting: None Hydration: Adequate Anesthesia-Related Issues: No Anes. Related Issues
--- NOTE | 2022-03-10 09:47 | MHC.CM.PN ---
PATIENT LIVES ALONE. HE IS FULLY INDEPENDENT HE DOES HAVE A WALKER, CANE, AND MOTORIZED SCOOTER (BELONGED TO HIS FATHER) IN THE HOME AND USES THESE ON OCCASION. CAR IS IN LOT. PATIENT IS NOT COVID VACCINATED BROTHER MIKE IS HCP AND A COPY IS REQUESTED. PLAN IS HOME TODAY - SELF CARE RN AWARE.
--- NOTE | 2022-03-10 10:29 | PM.IMCN ---
History of Present Illness Data of Consult Service Date: 03/10/22 Primary Care Provider: Mohamud Muro MD HPI Reason for consult: medical mgmt, DM, obesity This is a 47 yo M with a PMH as outlined below who is admitted under the general surgical services. Medical consult requested for diabetes, obesity and medical management. Patient is seen and examined in his room. He denies any current complaints and tells me he is going home today. In regards to the history of DM, he initially stated that he was not aware of this diagnosis. Subsequently, he informed me that he was told by his PCP a few years ago that he was diabetic. He reports that he was prescribed metformin (although I do not see any claim history of metformin). He then states, that he will not take metformin because his father who was a diabetic and had renal failure . He believes it was related to metformin. Next, he states insulin wont work for him because it is too expensive. Lastly, we talked about glipizide which he also against due to inconsistent meal timings. I offered him a endocrinology referral, which he did not seem to be too interested in. Review of Systems Review of Systems: negative except HPI [facility] Medical History Axillary hidradenitis suppurativa CAD (coronary artery disease) GERD (gastroesophageal reflux disease) Hypercholesterolemia Hypertension Family History Father Heart attack Surgical History History of shoulder surgery History of tonsillectomy Left rotator cuff tear Status post hip surgery Stented coronary artery Social History Household Members: Family Household Members Other:: 2 Housing: House Do you presently have visiting nurse or other home services: No Alcohol intake: current Alcohol intake frequency: a few times a month Alcohol type: beer Patient Tobacco Use Status: Current everyday Tobacco user Tobacco use type: Cigar Cigarette Packs Per Day: 1 Cigarettes Per Day: 20.0 Years Smoked: started 20 years Smoked in Last 30 Days: Yes e-Cigarette/Vaping Use: Never Used Patient Interested in Nicotine Replacement: No Patient Given Instructions on How to Stop Smoking: No Second Hand Smoke Exposure: No Use of substances other than those prescribed or required for medical reasons: No Currently Displaying Signs/Symptoms of Drug Intoxication Withdrawal: No Any prior treatment program specific to substance use: No Have you been hit, kicked, punched, or otherwise hurt by someone within the past year? If so, by whom?: No Do you feel safe in your current relationship?: No Is there a partner from a previous relationship who is making you feel unsafe now?: No Are you made to feel afraid or neglected: No Spiritual Healthcare Practices: latter-day Are you DNR?: No Advance Directives: No Advance Directives Information Provided: Yes Do you have thoughts of harming others: None Do you have a plan to hurt others: No Plan Recently lost weight without trying: No Eating poorly because of decreased appetite: No Nutrition Risks: No Nutritional Risk Poor oral hygiene: No service: No Current occupational status: employed Current occupation: right handed Meds Allergies Allergy/AdvReac Type Severity Reaction Status Date / Time No Known Allergies Allergy Verified 03/07/22 09:05 Active Medications: Current Medications Albuterol Sulfate (Albuterol Sulfate (0.083%) 2.5 Mg/3 Ml Vial.Neb) 2.5 mg INHALE Q2H PRN PRN Reason: Dyspnea Last Admin: 03/09/22 18:32 Dose: 2.5 mg Documented by: Atorvastatin Calcium (Atorvastatin Calcium 40 Mg Tablet) 40 mg PO DAILY [facility] Last Admin: 03/10/22 08:20 Dose: 40 mg Documented by: Dextrose (Dextrose 50 % 25 Gm/50 Ml Syringe) 25 gm IVPUSH Q15M PRN; Protocol PRN Reason: per Hypoglycemia Standing Ord. Dextrose (Dextrose 50 % 25 Gm/50 Ml Syringe) 25 gm IVPUSH Q15M PRN; Protocol PRN Reason: per Hypoglycemia Standing Ord. Docusate Sodium (Docusate Sodium 100 Mg Capsule) 200 mg PO BID [facility] Last Admin: 03/10/22 08:21 Dose: 200 mg Documented by: Fentanyl (Fentanyl Citrate/Pf 100 Mcg/2 Ml Vial) 50 mcg IVPUSH Q5M PRN; Protocol PRN Reason: Pain, Severe (Pain Scale 7-10) Glucose (Glucose Gel 15 Gm Gel..Gram.) 15 gm PO Q15M PRN; Protocol PRN Reason: per Hypoglycemia Standing Ord. Glucose (Glucose Gel 15 Gm Gel..Gram.) 15 gm PO Q15M PRN; Protocol PRN Reason: per Hypoglycemia Standing Ord. Heparin Sodium (Porcine) (Heparin Sodium,Porcine 5,000 Unit/Ml Vial) 5,000 unit SUBCUT Q8H [facility] Last Admin: 03/10/22 05:47 Dose: 5,000 unit Documented by: Piperacillin Sod/Tazobactam (Sod 3.375 gm/ Sodium Chloride) 50 mls @ 100 mls/hr IV Q6H [facility] Last Infusion: 03/10/22 09:12 Dose: Infused Documented by: Vancomycin HCl 1,000 mg/ (Sodium Chloride) 270 mls @ 270 mls/hr IV Q12H [facility] Last Admin: 03/10/22 08:22 Dose: 270 mls/hr Documented by: Lactated Ringer's (Lr) 1,000 mls @ 125 mls/hr IVCONT .Q8H [facility] Last Infusion: 03/10/22 09:11 Dose: Infused Documented by: Insulin Human Lispro (Insulin Lispro 100 Unit/Ml 3 Ml Vial) 0 unit SUBCUT QIDACHS [facility]; Protocol Last Admin: 03/10/22 08:21 Dose: 4 unit Documented by: Metoprolol Succinate (Metoprolol Succinate Er 25 Mg Tab.Er.24h) 25 mg PO BEDTIME [facility]; Protocol Ondansetron HCl (Ondansetron Hcl 4 Mg/2 Ml Vial) 4 mg IVPUSH ONCE PRN PRN Reason: Nausea and Vomiting Oxycodone HCl (Oxycodone Hcl Immed Release 5 Mg Tablet) 5 mg PO ONCE PRN PRN Reason: Pain, Severe (Pain Scale 7-10) Pharmacy Consult (Consult Rx Vancomycin Dosing) 1 each MISCELLANE DAILY PRN PRN Reason: Consult order Sodium Chloride (0.9 % Sodium Chloride Flush 3 Ml Syringe) 3 ml IVFLUSH [facility] Last Admin: 03/10/22 09:11 Dose: Not Given Documented by: Sodium Chloride (0.9 % Sodium Chloride Flush 3 Ml Syringe) 3 ml IVFLUSH [facility] Last Admin: 03/10/22 09:11 Dose: Not Given Documented by: Sodium Chloride (0.9 % Sodium Chloride Flush 3 Ml Syringe) 3 ml IVFLUSH [facility] Last Admin: 03/10/22 09:11 Dose: Not Given Documented by: Home Medications Medication Instructions Recorded Confirmed Last Taken Type aspirin 81 mg tablet,delayed 81 mg PO BEDTIME 03/03/21 03/09/22 03/08/22 History release (Enteric Coated Aspirin) adalimumab 40 mg/0.4 mL 40 mg SUBCUT TARIQ 03/05/22 03/09/22 03/08/22 History subcutaneous pen kit (Humira(CF) Pen) metoprolol succinate 25 mg 25 mg PO BEDTIME 03/09/22 03/09/22 03/08/22 History tablet,extended release 24 hr pantoprazole 40 mg tablet,delayed 40 mg PO DAILY PRN 03/09/22 03/09/22 Unknown History release Physical Exam Vital Signs and Narrative: Vital Signs: Last Vital Signs Temp 97.3 F 03/10/22 07:14 Pulse 83 03/10/22 07:14 Resp 18 03/10/22 07:14 BP 122/66 03/10/22 07:14 Pulse Ox 98 03/10/22 07:14 BMI result Body Mass Index 42.4 Const: Other: General - no acute distress, appears comfortable Cardiovascular - regular rate and rhythm, S1-S2 Lungs - normal respiratory effort, clear to auscultation bilaterally, no wheezing Abdomen - soft, nontender, no rebound or guarding Extremities - no edema bilaterally Neuro - awake and alert, no focal deficits Results Labs CBC and Chem 7: 03/10/22 06:32 03/10/22 06:32 Labs: Laboratory Results - last 24 hr 03/09/22 03/09/22 03/09/22 16:37 18:32 18:51 MCV MCH MCHC RDW Plt Count MPV Immature Gran % (Auto) Neut % (Auto) Lymph % (Auto) [place] % (Auto) Eos % (Auto) Baso % (Auto) Lymph # (Auto) [place] # (Auto) Eos # (Auto) Baso # (Auto) Abs Immat Gran (auto) Absolute Neuts (auto) Absolute Nucleated RBC Nucleated RBC % (auto) Smear Tech's Comments Anion Gap Estim Creat Clear Calc Estimated GFR POC Glucose 234 H 195 H Random Glucose Estimat Average Glucose 220 Hemoglobin A1c % 9.3 Lactic Acid Calcium Total Bilirubin AST ALT Alkaline Phosphatase Total Protein Albumin COVID-19 (LAURA) COVID-19 Clin Com 03/09/22 03/09/22 03/09/22 18:51 18:51 19:28 MCV 89.4 MCH 29.6 MCHC 33.1 RDW 13.1 Plt Count 159 L D MPV 10.7 Immature Gran % (Auto) 1.3 H Neut % (Auto) 70.4 Lymph % (Auto) 12.3 L [place] % (Auto) 13.1 H Eos % (Auto) 2.6 Baso % (Auto) 0.3 Lymph # (Auto) 1.9 [place] # (Auto) 2.0 H Eos # (Auto) 0.4 Baso # (Auto) 0.1 Abs Immat Gran (auto) 0.19 H Absolute Neuts (auto) 10.6 H Absolute Nucleated RBC 0.000 Nucleated RBC % (auto) 0.0 Smear Tech's Comments VERIFIED Anion Gap 12 Estim Creat Clear Calc 151.7 Estimated GFR > 60 POC Glucose Random Glucose 232 H D Estimat Average Glucose Hemoglobin A1c % Lactic Acid 1.2 Calcium 8.0 L D Total Bilirubin 0.8 AST 33 D ALT 49 H Alkaline Phosphatase 87 Total Protein 6.2 L Albumin 3.1 L COVID-19 (LAURA) COVID-19 Clin Com 03/09/22 03/09/22 03/10/22 20:10 21:35 06:32 MCV 90.7 MCH 29.4 MCHC 32.5 RDW 13.1 Plt Count 149 L MPV 10.8 Immature Gran % (Auto) 1.8 H Neut % (Auto) 67.5 Lymph % (Auto) 13.6 L [place] % (Auto) 13.0 H Eos % (Auto) 3.8 Baso % (Auto) 0.3 Lymph # (Auto) 1.6 [place] # (Auto) 1.6 H Eos # (Auto) 0.5 H Baso # (Auto) 0.0 Abs Immat Gran (auto) 0.21 H Absolute Neuts (auto) 8.1 Absolute Nucleated RBC 0.000 Nucleated RBC % (auto) 0.0 Smear Tech's Comments VERIFIED Anion Gap Estim Creat Clear Calc Estimated GFR POC Glucose 244 H Random Glucose Estimat Average Glucose Hemoglobin A1c % Lactic Acid Calcium Total Bilirubin AST ALT Alkaline Phosphatase Total Protein Albumin COVID-19 (LAURA) Negative COVID-19 Clin Com See Note 03/10/22 03/10/22 06:32 07:16 MCV MCH MCHC RDW Plt Count MPV Immature Gran % (Auto) Neut % (Auto) Lymph % (Auto) [place] % (Auto) Eos % (Auto) Baso % (Auto) Lymph # (Auto) [place] # (Auto) Eos # (Auto) Baso # (Auto) Abs Immat Gran (auto) Absolute Neuts (auto) Absolute Nucleated RBC Nucleated RBC % (auto) Smear Tech's Comments Anion Gap 10 L Estim Creat Clear Calc 151.7 Estimated GFR > 60 POC Glucose 203 H Random Glucose 219 H Estimat Average Glucose Hemoglobin A1c % Lactic Acid Calcium 8.2 L Total Bilirubin AST ALT Alkaline Phosphatase Total Protein Albumin COVID-19 (LAURA) COVID-19 Clin Com Assessment and Plan (1) Poorly controlled type 2 diabetes mellitus: Status: Acute Plan 47 yo M with multiple medical issues including obesity and DM who is admitted to gen surg after I&D of L gluteal and perineal abscess. Medical consult requested for DM, obesity and medical mgmt 1. Uncontrolled DM A1C is 9.3 He is not on any DM meds as an outpatient. He is not open to the ideas of metformin / insulin. Overall, he is apathetic to DM treatment in general. It may be best to have him see an painter. In the mean time, I attempted to provide him nutrition education, which he again appears to be apathetic about despite explaining to him the short and exterminator consequences of uncontrolled DM. Agree with sliding scale while hospitalized. 2. Perineal/gluteal abscess mgmt per primary team Will sign off. Please re-consult/tigerconnect if any questions
[2022-03-10 10:59] LABS: Glucose, Whole Blood 207 mg/dL (60-115)
[2022-03-10 11:29] VITALS: BP 133/76; PULSE 83; RESP 17; TEMP 36; O2SAT 98
== END 2022-03-10 15:49 | disposition home or self-care (01) ==
LOC: HO.SSS 15:18 → HO.S3 18:24
PROVIDERS: PCP Internal Medicine; Visit Provider Surgery
PROC: (CPT 10061; principal; 2022-03-09 16:30)
DX: L02.31 Cutaneous abscess of buttock (principal); L02.215 Cutaneous abscess of perineum; B96.89 Other specified bacterial agents as the cause of diseases classified elsewhere; E11.65 Type 2 diabetes mellitus with hyperglycemia; I10 Essential (primary) hypertension; I25.10 Atherosclerotic heart disease of native coronary artery without angina pectoris; Z98.61 Coronary angioplasty status; E78.00 Pure hypercholesterolemia, unspecified; K21.9 Gastro-esophageal reflux disease without esophagitis; E66.01 Morbid (severe) obesity due to excess calories; Z68.41 Body mass index [BMI] 40.0-44.9, adult; Z79.84 Long term (current) use of oral hypoglycemic drugs; Z79.82 Long term (current) use of aspirin; Z79.899 Other long term (current) drug therapy; F17.210 Nicotine dependence, cigarettes, uncomplicated
CPT/HCPCS: 10061; 36415; 80048; 80053; 82947; 83036; 83605; 85025; 87071; 87205; 87635; 94640; 99024; J0131; J0690; J1200; J2250; J2405; J2543; J3010; J3370

== ENCOUNTER → 2022-03-11 08:20 | Outpatient (BNVA) | payer BC, SELFPAY | PROVIDERS: PCP Internal Medicine; Referring Provider Internal Medicine; Visit Provider Surgery | DX: N34.0 Urethral abscess (principal); L02.31 Cutaneous abscess of buttock; E11.65 Type 2 diabetes mellitus with hyperglycemia; N49.2 Inflammatory disorders of scrotum; I10 Essential (primary) hypertension; E66.01 Morbid (severe) obesity due to excess calories; Z72.0 Tobacco use; Z68.41 Body mass index [BMI] 40.0-44.9, adult; Z79.899 Other long term (current) drug therapy | CPT/HCPCS: 55100 ==

== ENCOUNTER → 2022-03-16 09:10 | Outpatient (BNVA) | payer BC, SELFPAY | PROVIDERS: PCP Internal Medicine; Referring Provider Internal Medicine; Visit Provider Surgery | DX: E66.01 Morbid (severe) obesity due to excess calories (principal) ==

== ENCOUNTER → 2022-03-23 08:13 | Outpatient (BNVA) | payer BC, SELFPAY | PROVIDERS: PCP Internal Medicine; Referring Provider Internal Medicine; Visit Provider Surgery | DX: N34.0 Urethral abscess (principal) ==

== ENCOUNTER → 2022-06-08 08:41 | Outpatient (BNVA) | payer BC, SELFPAY | PROVIDERS: PCP Internal Medicine; Referring Provider Surgery; Visit Provider Surgery | DX: L73.2 Hidradenitis suppurativa (principal) | CPT/HCPCS: 46600 ==

== ENCOUNTER 2022-07-10 07:20 | Inpatient (IN) | payer BC, SELFPAY ==
--- NOTE | ~2022-07-10 | CT_ITS ---
EXAMINATION: CT ABDOMEN AND PELVIS WITHOUT CONTRAST CLINICAL INFORMATION: Lower abdominal pain, hydradenitis suppurativa. COMPARISON: None TECHNIQUE: Multidetector volumetric imaging was performed from the superior aspect of the liver through the pubic symphysis. Sagittal and coronal reformatted images were obtained on the technologist's workstation. This CT examination was performed using dose optimization techniques as appropriate, variously including the following: *Automated exposure control *Adjustment of mA and/or kV according to patient size (this includes techniques or standardized protocols for targeted exams where dose is matched to indication/reason for exam; i.e. extremities or head) *Use of iterative reconstruction technique DLP: 1048 mGy-cm FINDINGS: LUNG BASES: There is atherosclerotic calcification of coronary arteries. No pulmonary consolidation or pleural effusion. LIVER: Hepatomegaly and diffuse hepatic steatosis. No focal liver lesions are identified on this noncontrast examination. GALLBLADDER AND BILIARY TREE: Gallbladder has a 0.3 cm calcified stone. No gallbladder wall thickening or pericholecystic fluid. No dilated bile ducts. PANCREAS: Normal. No edema, pancreatic ductal dilatation or mass. SPLEEN: Normal. ADRENAL GLANDS: Normal. KIDNEYS AND URETERS: The kidneys have normal size and cortical thickness. No perinephric edema or fluid collection. No urolithiasis or hydroureteronephrosis. BLADDER: Normal. No calculi or wall thickening. BOWEL AND PERITONEUM: Stomach is grossly unremarkable. No dilated bowel loops. The appendix is normal. Pancolonic diverticulosis. No pericolonic fat stranding, abdominal free fluid or free air. ABDOMINAL WALL: Large body habitus. The diastases of rectus abdominis muscles measures up to 6.3 cm wide. However, no evidence of any significant hernia in the abdominal wall. There is skin thickening, mild edema of subcutaneous tissue of the abdominal wall pannus inferiorly. VASCULATURE: Mild atherosclerotic calcification of the abdominal aorta without aneurysm. LYMPH NODES: No pathologic sized lymph nodes in the abdomen or pelvis. No inguinal lymphadenopathy. PELVIC VISCERA: Unremarkable. SKELETAL: Disc degenerative changes of lumbar spine is worst at the L5-S1 level where there is a prominent posterior disc-osteophyte complex. Moderate bilateral neural foraminal stenosis at L5-S1. There are intact fixation screws across the left femoral neck. Mild osteoarthritis of the right hip and [id number] osteoarthritis of the left hip. CT/CT abdomen pelvis wo IV con IMPRESSION: * There is hepatomegaly and diffuse hepatic steatosis. * Cholelithiasis without evidence of cholecystitis. * Pancolonic diverticulosis without diverticulitis. * There is skin thickening, mild subcutaneous tissue edema at the inferior aspect of the abdominal wall pannus. However, no abdominal wall fluid collection/abscess.
[2022-07-10 08:11] VITALS: BP 147/86; PULSE 99; RESP 16; TEMP 36.9; O2SAT 97; BMI 40.2
--- NOTE | 2022-07-10 08:16 | ECG_ITS ---
Test Reason : general Blood Pressure : / mmHG Vent. Rate : 092 BPM Atrial Rate : 092 BPM P-R Int : 162 ms QRS Dur : 096 ms QT Int : 352 ms P-R-T Axes : 045 040 041 degrees QTc Int : 435 ms Normal sinus rhythm Normal ECG When compared with ECG of 31-MAY-2021 09:12, No significant change was found Referred By: Laurence Zambrano Electronically Signed By:CARMELO FLEMING
--- NOTE | 2022-07-10 08:20 | ED_ITS ---
HPI - General Adult General Chief complaint: General Medical Stated complaint: Hidradenitis suppurativa flare up Time Seen by Provider: 07/10/22 08:16 Source: patient Mode of arrival: ambulatory History of Present Illness HPI narrative: This is a 47-year-old male with history of hidradenitis supportiva, CAD (not currently taking his medications due to cost) and is currently on Humira for the hidradenitis by his vision care associate. Patient states that over the past week despite his typical interventions his lower abdomen has become more red, swollen, tender although he is continued to have purulence drainage. Patient also reports that he has an area on his back which is very tender. He denies being followed by any Surgical Services and denies any current fevers or chills or other symptoms such as shortness of breath/chest pain/palpitations. Related Data Home Medications Medication Instructions Recorded Confirmed aspirin 81 mg tablet,delayed 81 mg PO BEDTIME 03/03/21 06/08/22 release (Enteric Coated Aspirin) adalimumab 40 mg/0.4 mL 40 mg subcut TARIQ 03/05/22 06/08/22 subcutaneous pen kit (Humira(CF) Pen) metoprolol succinate 25 mg 25 mg PO BEDTIME 03/09/22 03/23/22 tablet,extended release 24 hr Previous Rx's Medication Instructions Recorded atorvastatin 40 mg tablet 40 mg PO DAILY 90 days #90 tabs 06/11/21 meloxicam 15 mg tablet 15 mg PO DAILY #14 tabs 03/05/22 amoxicillin 875 mg-potassium 1 tab PO Q12H #20 tabs 03/10/22 clavulanate 125 mg tablet docusate sodium 100 mg capsule 200 mg PO BID #60 caps 03/10/22 pantoprazole 40 mg tablet,delayed 40 mg PO DAILY PRN Heartburn #90 03/26/22 release tabs Allergies Allergy/AdvReac Type Severity Reaction Status Date / Time No Known Allergies Allergy Verified 06/08/22 08:51 Review of Systems Review of Systems: Pertinent positives and negatives as stated in HPI 10 point review of systems is otherwise negative. [facility] Past Medical History Source: nursing notes reviewed Medical History Axillary hidradenitis suppurativa Grigsby's palsy CAD (coronary artery disease) Elbow pain, right Epicondylitis, lateral GERD (gastroesophageal reflux disease) Hypercholesterolemia Hypertension Surgical History History of shoulder surgery History of tonsillectomy Left rotator cuff tear Status post hip surgery Stented coronary artery Family History Family History Father Heart attack Social History Social History Household Members: Family Household Members Other:: 2 Housing: House Do you presently have visiting nurse or other home services: No Alcohol intake: current Alcohol intake frequency: a few times a month Alcohol type: beer Patient Tobacco Use Status: Current everyday Tobacco user Tobacco use type: Cigar Cigarette Packs Per Day: 1 Cigarettes Per Day: 20.0 Years Smoked: started 20 years e-Cigarette/Vaping Use: Never Used Second Hand Smoke Exposure: No Advance Directives: No Advance Directives Information Provided: No service: No Current occupational status: employed Current occupation: right handed Physical Exam ED Vital Signs: Vital Signs - 24 hr 07/10/22 08:11 07/10/22 10:07 Temperature 98.4 F Pulse Rate 99 86 Respiratory Rate 16 18 Blood Pressure 147/86 H 146/84 H Pulse Oximetry 97 99 Oxygen Delivery Method Room Air Room Air BMI result Body Mass Index 40.2 VITAL SIGNS: Reviewed. GENERAL: Well developed, well nourished, in no acute distress. HEAD: Normocephalic/atraumatic EYES: PERRLA, EOMI EARS: Ext canals without abnormality OROPHARYNX: no oral lesions noted, posterior pharynx clear LUNGS: Normal breath sounds. No adventitious sounds or accessory muscle use. SpO2<97> CARDIOVASCULAR: Regular rate and rhythm without noted murmurs ABDOMEN: Soft, non-tender, non-distended with bowel sounds, multiple areas of draining purulence from sites of abscesses with surrounding erythema/induration, significant pain on palpation this is located at the inferior aspect of his abdomen that has an overlying pannus, there is an absorbing pad in place BACK: Upper, mid back area of erythema and fluctuance with pain on palpation MUSCULOSKELETAL: No tenderness, deformities, or effusions noted on gross inspection. EXTREMITIES: No cyanosis, clubbing or edema. SKIN: Inspection of the skin reveals no rashes NEUROLOGIC: Alert and oriented x 4. Strength and sensation to light touch were grossly intact x 4. Course Course Course Narrative: 47-year-old male with history and clinical presentation consistent with a diabetic patient on review of his chart who is not taking medications and has an underlying condition of hidradenitis supportiva with pain/redness/swelling. Lower clinical suspicion for necrotizing fasciitis however anterior abdominal wall cellulitis concernin. Patient will have antibiotics, IV fluids and Zosyn has been ordered. Review of all investigations demonstrates findings most consistent with abdominal wall cellulitis, this case was discussed with General surgery as well as inpatient hospitalist. Patient was informed all results and findings and the plan for admission for IV antibiotics. I discussed case with inpatient hospitalist who accepts admission. Reevaluation(s) Reevaluation #1: I discussed the case with Dr. Awad, who will see the patient in agrees with admission for IV antibiotics and recommends obtaining HB A1c. Time: 11:30 Medical Decision Making Lab Data Result diagrams: 07/10/22 08:48 07/10/22 08:48 Labs: Lab Results 07/10/22 07/10/22 07/10/22 Range/Units 08:48 08:48 08:48 WBC 14.0 H (4.8-10.8) X10*3/uL RBC 5.39 D (4.60-5.80) X10*6/uL Hgb 15.8 D (14.0-18.0) g/dl Hct 46.7 D (42.0-52.0) % MCV 86.6 (80.0-98.0) fL MCH 29.3 (27.0-33.0) pg MCHC 33.8 (31.0-36.0) g/dl RDW 13.0 (11.0-16.0) % Plt Count 189 D (160-400) X10*3/uL MPV 10.5 (9.4-12.4) fL Immature Gran % (Auto) 0.6 H (0.0-0.4) % Neut % (Auto) 66.8 (45-73) % Lymph % (Auto) 22.0 (20-40) % Yates % (Auto) 7.3 (2-11) % Eos % (Auto) 2.9 (0-4) % Baso % (Auto) 0.4 (0-2) % Lymph # (Auto) 3.1 (1.2-4.9) X10*3/uL Yates # (Auto) 1.0 (0.1-1.2) X10*3/uL Eos # (Auto) 0.4 (0.0-0.4) X10*3/uL Baso # (Auto) 0.1 (0.0-0.2) X10*3/uL Abs Immat Gran (auto) 0.09 H (0.00-0.03) X10*3/uL Absolute Neuts (auto) 9.3 H (2.0-8.3) x10*3/uL Absolute Nucleated RBC 0.000 (0.0-0.012) X10*3/uL Nucleated RBC % (auto) 0.0 (0.0-0.2) /100WBC PT 11.8 (10.0-13.1) SEC INR 1.0 (0.9-1.1) Sodium 133 L (135-145) mmol/L Potassium 4.2 (3.3-5.1) mmol/L Chloride 96 (96-108) mmol/L Carbon Dioxide 25 (22-29) mmol/L Anion Gap 16 (12-20) BUN 10 (9-16) mg/dL Creatinine 0.83 (0.5-1.4) mg/dL Estim Creat Clear Calc 154.6 Estimated GFR > 60 Random Glucose 249 H (60-115) mg/dL Lactic Acid (0.5-2.0) mmol/L Calcium 8.9 D (8.4-10.2) mg/dL Total Bilirubin 0.9 (0.0-1.0) mg/dL AST 26 (5-37) U/L ALT 31 (0-40) U/L Alkaline Phosphatase 97 (39-117) U/L Total Protein 7.9 D (6.5-8.0) g/dL Albumin 3.8 D (3.5-5.0) g/dL 07/10/22 Range/Units 08:48 WBC (4.8-10.8) X10*3/uL RBC (4.60-5.80) X10*6/uL Hgb (14.0-18.0) g/dl Hct (42.0-52.0) % MCV (80.0-98.0) fL MCH (27.0-33.0) pg MCHC (31.0-36.0) g/dl RDW (11.0-16.0) % Plt Count (160-400) X10*3/uL MPV (9.4-12.4) fL Immature Gran % (Auto) (0.0-0.4) % Neut % (Auto) (45-73) % Lymph % (Auto) (20-40) % Yates % (Auto) (2-11) % Eos % (Auto) (0-4) % Baso % (Auto) (0-2) % Lymph # (Auto) (1.2-4.9) X10*3/uL Yates # (Auto) (0.1-1.2) X10*3/uL Eos # (Auto) (0.0-0.4) X10*3/uL Baso # (Auto) (0.0-0.2) X10*3/uL Abs Immat Gran (auto) (0.00-0.03) X10*3/uL Absolute Neuts (auto) (2.0-8.3) x10*3/uL Absolute Nucleated RBC (0.0-0.012) X10*3/uL Nucleated RBC % (auto) (0.0-0.2) /100WBC PT (10.0-13.1) SEC INR (0.9-1.1) Sodium (135-145) mmol/L Potassium (3.3-5.1) mmol/L Chloride (96-108) mmol/L Carbon Dioxide (22-29) mmol/L Anion Gap (12-20) BUN (9-16) mg/dL Creatinine (0.5-1.4) mg/dL Estim Creat Clear Calc Estimated GFR Random Glucose (60-115) mg/dL Lactic Acid 2.0 (0.5-2.0) mmol/L Calcium (8.4-10.2) mg/dL Total Bilirubin (0.0-1.0) mg/dL AST (5-37) U/L ALT (0-40) U/L Alkaline Phosphatase (39-117) U/L Total Protein (6.5-8.0) g/dL Albumin (3.5-5.0) g/dL ECG Data Attestation: I personally reviewed and interpreted this ECG as follows: Prior ECG tracings: available for review Interpretation: Normal sinus rhythm, HR-92, no STEMI, RI/QRS/QTC is within normal limits. Critical Care Time Critical Care Time Critical Care Time: Yes Total Critical Care Time: 30 Attestation: I personally attest to this time spent taking care of the patient. Discharge Plan Discharge Clinical Impression: Abdominal wall cellulitis, Type 2 diabetes mellitus with hyperglycemia, Hidradenitis suppurativa Patient Disposition: Admitted As Inpatient Prescriptions: No Action atorvastatin 40 mg tablet 40 mg PO DAILY 90 Days Qty: 90 0RF Rx Instructions: Must make appt for refills. pantoprazole 40 mg tablet,delayed release (DR/EC) 40 mg PO DAILY PRN (Reason: Heartburn) Qty: 90 0RF metoprolol succinate 25 mg tablet extended release 24 hr 25 mg PO BEDTIME Rx Instructions: Must make appt for refills docusate sodium 100 mg Capsule 200 mg PO BID Qty: 60 0RF amoxicillin-pot clavulanate 875-125 mg tablet 1 tab PO Q12H Qty: 20 0RF Rx Instructions: 1 tablet every 12 hours until complete & meds are gone aspirin [Enteric Coated Aspirin] 81 mg tablet,delayed release (DR/EC) 81 mg PO BEDTIME Humira(CF) Pen 40 mg/0.4 mL pen injector kit 40 mg subcut TARIQ meloxicam 15 mg tablet 15 mg PO DAILY Qty: 14 0RF
[2022-07-10] MEDS: Piperacillin Sodium/Tazobactam 3.375 GM in 0.9 % Sodium Chloride 50 ML IV (08:52)
[2022-07-10] MEDS: 0.9 % Sodium Chloride 1,000 ML 999 ML IV (08:52)
[2022-07-10 08:57] LABS: MANUAL DIFF FLAG NO
[2022-07-10 08:58] LABS: Basophils Absolute Auto 0.1 X10*3/uL (0.0-0.2); Basophils Percent Auto 0.4 % (0-2); Eosinophils Absolute Auto 0.4 X10*3/uL (0.0-0.4); Eosinophils Percent Auto 2.9 % (0-4); Hematocrit 46.7 % (42.0-52.0); Hemoglobin 15.8 g/dl (14.0-18.0); Imm Gran Abs Auto 0.09 X10*3/uL (0.00-0.03); Imm Gran Pct Auto 0.6 % (0.0-0.4); Lymphocytes Absolute Auto 3.1 X10*3/uL (1.2-4.9); Mean Corpuscular HGB Conc 33.8 g/dl (31.0-36.0); Mean Corpuscular Hemoglobin 29.3 pg (27.0-33.0); Mean Corpuscular Volume 86.6 fL (80.0-98.0); Mean Platelet Volume 10.5 fL (9.4-12.4); Monocytes Percent Auto 7.3 % (2-11); Neutrophils Absolute Auto 9.3 x10*3/uL (2.0-8.3); Neutrophils Percent Auto 66.8 % (45-73); Platelet Count 189 X10*3/uL (160-400); Red Blood Count 5.39 X10*6/uL (4.60-5.80)
[2022-07-10 09:06] LABS: Prothrombin Time 11.8 SEC (10.0-13.1)
[2022-07-10 09:17] LABS: Alanine Aminotransferase 31 U/L (0-40); Albumin Level 3.8 g/dL (3.5-5.0); Alkaline Phosphatase 97 U/L (39-117); Anion Gap 16 (12-20); Aspartate Amino Transferase 26 U/L (5-37); Bilirubin Total 0.9 mg/dL (0.0-1.0); Blood Urea Nitrogen 10 mg/dL (9-16); Calcium 8.9 mg/dL (8.4-10.2); Carbon Dioxide 25 mmol/L (22-29); Chloride 96 mmol/L (96-108); Creatinine Clr Calc Pharmacy 154.6; Estimated Glomerular Filt Rate > 60; Glucose Random 249 mg/dL (60-115); Potassium 4.2 mmol/L (3.3-5.1); Sodium 133 mmol/L (135-145); Total Protein 7.9 g/dL (6.5-8.0)
[2022-07-10] MEDS: Ketorolac Tromethamine 30 MG/ML VIAL 15 MG IVPUSH (09:40)
[2022-07-10] MEDS: Acetaminophen 325 MG TABLET 975 MG PO (09:40)
[2022-07-10 10:07] VITALS: BP 146/84; PULSE 86; RESP 18; O2SAT 99
[2022-07-10 12:09] LABS: COVID-19 Test Negative (Negative); IDNOW Serial# 9DD0AD1C
[2022-07-10 12:21] LABS: Glucose, Whole Blood 202 mg/dL (60-115)
--- NOTE | 2022-07-10 12:21 | PHA.MEDREC ---
Pharmacy Consult ? Medication Reconciliation Pharmacy has completed the medication reconciliation. Spoke with patient in the ED. Patient is ONLY taking Humira once weekly and an aspirin.
--- NOTE | 2022-07-10 12:23 | PM.IMHP ---
History of Present Illness Date of Service: 07/10/22 Chief Complaint: Abdominal wall purulent cellulitis This is a 47-year-old male with a pertinent history of uncontrolled type 2 diabetes mellitus, noncompliant with home medications, tobacco use disorder, hidradenitis suppurativa on Humira (managed by dermatology outpatient), history of perianal abscess co presents to the emergency department for evaluation and management of abdominal wall purulent cellulitis. Patient states he has been having abdominal wall pain with reddish rash that has been worsening over the last 1 week. It is associated with foul smelling purulent drainage. Patient did not try any antibiotics for it. Patient denies systemic complaints including fever, chills, nausea, vomiting, headache, changes in urinary or bowel habits. Patient also has a painful bump on his back which is draining purulent material. Patient states he had a cardiac stent put in 2011 but only takes aspirin. He is not compliant with statin and beta-patricio. Patient states he also does not take any diabetic medications due to cost. Patient has tried quitting cigarette smoking but states it makes him gain weight so he would try does smoke cigarettes than eat. Does not take anything for her blood pressure. Review of Systems Review of Systems: All 13 review of systems are negative except as noted in [facility] Medical History Axillary hidradenitis suppurativa CAD (coronary artery disease) GERD (gastroesophageal reflux disease) Hypercholesterolemia Hypertension Type 2 diabetes mellitus with hyperglycemia Family History Father Heart attack Surgical History Gluteal abscess History of shoulder surgery History of tonsillectomy Left rotator cuff tear Status post hip surgery Stented coronary artery Social History Household Members: Family Household Members Other:: 2 Housing: House Do you presently have visiting nurse or other home services: No Alcohol intake: current Alcohol intake frequency: a few times a month Alcohol type: beer Patient Tobacco Use Status: Current everyday Tobacco user Tobacco use type: Cigar Cigarette Packs Per Day: 1 Cigarettes Per Day: 20.0 Years Smoked: started 20 years e-Cigarette/Vaping Use: Never Used Second Hand Smoke Exposure: No Advance Directives: No Advance Directives Information Provided: No service: No Current occupational status: employed Current occupation: right handed Ebola Risk: Travel/Contact With Anyone From Affected Area/s: No Has Patient Experienced Ebola Symptoms: No Meds Allergies Allergy/AdvReac Type Severity Reaction Status Date / Time No Known Allergies Allergy Verified 06/08/22 08:51 Active Medications: Current Medications Aspirin (Aspirin 81 Mg Tab.Chew) 81 mg PO DAILY [facility] Atorvastatin Calcium (Atorvastatin Calcium 40 Mg Tablet) 40 mg PO DAILY [facility] Dextrose (Dextrose 50 % 25 Gm/50 Ml Syringe) 25 gm IVPUSH Q15M PRN; Protocol PRN Reason: per Hypoglycemia Standing Ord. Famotidine (Famotidine 20 Mg Tablet) 20 mg PO DAILY [facility] Glucose (Glucose Gel 15 Gm Gel..Gram.) 15 gm PO Q15M PRN; Protocol PRN Reason: per Hypoglycemia Standing Ord. Vancomycin HCl (Vancomycin/Ns) 2,000 mg in 520 mls @ 260 mls/hr IV ONCE ONE Stop: 07/10/22 14:06 Cefepime HCl 2 gm/ Sodium (Chloride) 50 mls @ 100 mls/hr IV Q8H [facility] Insulin Glargine (Insulin Glargine,Hum.Rec.Anlog 100 Unit/Ml 10 Ml Vial) 20 unit SUBCUT BEDTIME [facility] Insulin Human Lispro (Insulin Lispro 100 Unit/Ml 3 Ml Vial) 0 unit SUBCUT QIDACHS [facility]; Protocol Stop: 07/11/22 12:13 Ketorolac Tromethamine (Ketorolac Tromethamine 15 Mg/Ml Vial) 15 mg IM Q6H PRN PRN Reason: Pain, Moderate (Pain Scale 4-6 Metoprolol Tartrate (Metoprolol Tartrate 12.5 Mg Halftab) 12.5 mg PO BID [facility]; Protocol Pharmacy Consult (Consult Rx Perform Med Rec) 1 each MISCELLANE ONCE PRN PRN Reason: Consult order Pharmacy Consult (Consult Rx Vancomycin Dosing) 1 each MISCELLANE DAILY PRN PRN Reason: Consult order Home Medications Medication Instructions Recorded Confirmed Last Taken Type aspirin 81 mg tablet,delayed 81 mg PO DAILY 03/03/21 07/10/22 07/09/22 History release (Enteric Coated Aspirin) adalimumab 40 mg/0.4 mL 40 mg subcut MO@0900 03/05/22 07/10/22 07/09/22 History subcutaneous pen kit (Humira(CF) Pen) Physical Exam Vital Signs and Narrative: Vital Signs: Last Vital Signs Temp 98.4 F 07/10/22 08:11 Pulse 86 07/10/22 10:07 Resp 18 07/10/22 10:07 BP 146/84 H 07/10/22 10:07 Pulse Ox 99 07/10/22 10:07 O2 Del Method 07/10/22 10:07 BMI result Body Mass Index 40.2 Middle-aged well-developed male laying in bed in mild distress neck supple, no JVD equal breath sounds bilaterally with no wheezing or crackles appreciated regular rate and rhythm, S1-S2 heard, no murmurs appreciated abdomen is soft, nontender, nondistended, no guarding rigidity, induration, tenderness and erythema present in the hypogastric and iliac regions with multiple purulent draining sites Back: Area of erythema, tenderness and fluctuance present mid upper back patient is awake, alert, oriented to self, place, time and person, no focal motor weakness Results Labs CBC and Chem 7: 07/10/22 08:48 07/10/22 08:48 Labs: Laboratory Results - last 24 hr 07/10/22 07/10/22 07/10/22 08:48 08:48 08:48 MCV 86.6 MCH 29.3 MCHC 33.8 RDW 13.0 Plt Count 189 D MPV 10.5 Immature Gran % (Auto) 0.6 H Neut % (Auto) 66.8 Lymph % (Auto) 22.0 Maries % (Auto) 7.3 Eos % (Auto) 2.9 Baso % (Auto) 0.4 Lymph # (Auto) 3.1 Maries # (Auto) 1.0 Eos # (Auto) 0.4 Baso # (Auto) 0.1 Abs Immat Gran (auto) 0.09 H Absolute Neuts (auto) 9.3 H Absolute Nucleated RBC 0.000 Nucleated RBC % (auto) 0.0 PT 11.8 INR 1.0 Anion Gap 16 Estim Creat Clear Calc 154.6 Estimated GFR > 60 POC Glucose Random Glucose 249 H Lactic Acid Calcium 8.9 D Total Bilirubin 0.9 AST 26 ALT 31 Alkaline Phosphatase 97 Total Protein 7.9 D Albumin 3.8 D COVID-19 ([facility]) COVID-19 Clin Com 07/10/22 07/10/22 07/10/22 08:48 11:39 12:17 MCV MCH MCHC RDW Plt Count MPV Immature Gran % (Auto) Neut % (Auto) Lymph % (Auto) Maries % (Auto) Eos % (Auto) Baso % (Auto) Lymph # (Auto) Maries # (Auto) Eos # (Auto) Baso # (Auto) Abs Immat Gran (auto) Absolute Neuts (auto) Absolute Nucleated RBC Nucleated RBC % (auto) PT INR Anion Gap Estim Creat Clear Calc Estimated GFR POC Glucose 202 H Random Glucose Lactic Acid 2.0 Calcium Total Bilirubin AST ALT Alkaline Phosphatase Total Protein Albumin COVID-19 ([facility]) Negative COVID-19 Clin Com See Note Imaging Radiologist's Impressions: Impressions Abdomen/Pelvis CT 07/10/22 09:46 IMPRESSION: * There is hepatomegaly and diffuse hepatic steatosis. * Cholelithiasis without evidence of cholecystitis. * Pancolonic diverticulosis without diverticulitis. * There is skin thickening, mild subcutaneous tissue edema at the inferior aspect of the abdominal wall pannus. However, no abdominal wall fluid collection/abscess. Assessment and Plan (1) Abdominal wall cellulitis: Status: Acute (2) Back abscess: Status: Acute (3) Type 2 diabetes mellitus with hyperglycemia: Status: Acute (4) Hidradenitis suppurativa: Status: Acute (5) Morbid (severe) obesity due to excess calories: Status: Acute (6) Tobacco abuse: Status: Acute (7) Hypercholesterolemia: Status: Acute (8) Hypertension: Qualifiers: Hypertension type: essential hypertension Qualified Code(s): I10 - Essential (primary) hypertension Status: Acute Plan This is a 47-year-old male with a pertinent history of uncontrolled type 2 diabetes mellitus, noncompliant with home medications, tobacco use disorder, hidradenitis suppurativa on Humira (managed by dermatology outpatient), history of perianal abscess co presents to the emergency department for evaluation and management of abdominal wall purulent cellulitis. *Abdominal wall purulent cellulitis *Back ?abscess -Will admit patient for IV antibiotics. surgical team has been consulted for possible I&D. Patient has multiple risk factors including uncontrolled diabetes mellitus and history of perianal abscess, will cover for MRSA and Pseudomonas with IV vancomycin and IV cefepime. Monitor and deescalate antibiotics appropriately. Blood cultures obtained in the ER. obtaining CRP to calculate LRINEC score and rule out necrotizing fasciitis in this patient with significant abdominal wall tenderness. Imaging without evidence of abdominal wall abscess. Patient is not septic but requires IV antibiotics for extensive infection and multiple purulent draining sites. Pain control with po analgesics prn. * type 2 diabetes mellitus with uncontrolled hyperglycemia due to medication noncompliance - patient extensively counseled regarding medication compliance as poorly controlled hyperglycemia is causing recurrent skin and soft tissue infections. Patient is apathetic to using metformin or insulin outpatient. Will initiate basal plus regimen while in the hospital, insulin lispro before meals and at bedtime and insulin glargine 20 units at bedtime. Trend blood glucose levels and initiate basal bolus regimen accordingly. Patient is not open to nutritonal education. *Tobacoo use disorder - Is not interested in quitting and refused nicotine patch hospital * coronary artery disease with cardiac stent placed in 2011 -continue home aspirin and initiate high-intensity statin and beta-patricio * hypertension/hyperlipidemia -noncompliant with medications at home. Restarting beta-patricio as above *Morbid obesity -Needs diabetic education *Hidradenitis suppurativa -On humira and managed by derm as an outpatient Diet: Diabetic diet Full code DVT prophylaxis: None. Holding anticoagulation until surgical evaluation Patient to stay in inpatient at least 2 midnights requiring IV antibiotics due to extensive purulent skin and soft tissue infection. May need surgical debridement. Quality Stroke Does the patient have a stroke diagnosis?: No VTE Prior VTE?: No VTE Risk Level:: Medical - moderate - high VTE Device Contraindication: Treatment Not Indicated VTE Drug Contraindication: Treatment Not Indicated
[2022-07-10] MEDS: cefEPime HCl 2 GM in 0.9 % Sodium Chloride 50 ML IV (12:49)
--- NOTE | 2022-07-10 13:00 | PM.CNGS ---
History of Present Illness Consult details Consult date: 07/10/22 Narrative: Patient is a 47-year-old gentleman with a history of poorly controlled type 2 diabetes, morbid obesity, nicotine use/cigarette smoking with his dry adenitis who presents to the emergency department with panniculitis and a back abscess. Patient notes that these infection started several days ago and I was asked to evaluate the patient by Dr. Zambrano. The patient notes purulence drainage from several spots on his panniculus and the fold as well as on his upper back. Review of Systems Review of Systems: Yes all other systems are reviewed and are negative Constitutional: Constitutional: Reports as per [facility] Past Medical History Medical History Axillary hidradenitis suppurativa CAD (coronary artery disease) GERD (gastroesophageal reflux disease) Hypercholesterolemia Hypertension Type 2 diabetes mellitus with hyperglycemia Family History Family History Father Heart attack Surgical History Surgical History Gluteal abscess History of shoulder surgery History of tonsillectomy Left rotator cuff tear Status post hip surgery Stented coronary artery Social History Social History Household Members: Family Household Members Other:: 2 Housing: House Do you presently have visiting nurse or other home services: No Alcohol intake: current Alcohol intake frequency: a few times a month Alcohol type: beer Patient Tobacco Use Status: Current everyday Tobacco user Tobacco use type: Cigar Cigarette Packs Per Day: 1 Cigarettes Per Day: 20.0 Years Smoked: started 20 years e-Cigarette/Vaping Use: Never Used Second Hand Smoke Exposure: No Advance Directives: No Advance Directives Information Provided: No service: No Current occupational status: employed Current occupation: right handed Travel History Ebola Risk: Travel/Contact With Anyone From Affected Area/s: No Has Patient Experienced Ebola Symptoms: No Meds Allergies Allergy/AdvReac Type Severity Reaction Status Date / Time No Known Allergies Allergy Verified 06/08/22 08:51 Active Medications: Current Medications Aspirin (Aspirin 81 Mg Tab.Chew) 81 mg PO DAILY DANIEL Atorvastatin Calcium (Atorvastatin Calcium 40 Mg Tablet) 40 mg PO DAILY DANIEL Dextrose (Dextrose 50 % 25 Gm/50 Ml Syringe) 25 gm IVPUSH Q15M PRN; Protocol PRN Reason: per Hypoglycemia Standing Ord. Famotidine (Famotidine 20 Mg Tablet) 20 mg PO DAILY [facility] Glucose (Glucose Gel 15 Gm Gel..Gram.) 15 gm PO Q15M PRN; Protocol PRN Reason: per Hypoglycemia Standing Ord. Vancomycin HCl (Vancomycin/Ns) 2,000 mg in 520 mls @ 260 mls/hr IV ONCE ONE Stop: 07/10/22 14:06 Cefepime HCl 2 gm/ Sodium (Chloride) 50 mls @ 100 mls/hr IV Q8H [facility] Last Admin: 07/10/22 12:49 Dose: 100 mls/hr Insulin Glargine (Insulin Glargine,Hum.Rec.Anlog 100 Unit/Ml 10 Ml Vial) 20 unit SUBCUT BEDTIME [facility] Insulin Human Lispro (Insulin Lispro 100 Unit/Ml 3 Ml Vial) 0 unit SUBCUT QIDACHS [facility]; Protocol Stop: 07/11/22 12:13 Ketorolac Tromethamine (Ketorolac Tromethamine 15 Mg/Ml Vial) 15 mg IM Q6H PRN PRN Reason: Pain, Moderate (Pain Scale 4-6 Metoprolol Tartrate (Metoprolol Tartrate 12.5 Mg Halftab) 12.5 mg PO BID [facility]; Protocol Pharmacy Consult (Consult Rx Perform Med Rec) 1 each MISCELLANE ONCE PRN PRN Reason: Consult order Pharmacy Consult (Consult Rx Vancomycin Dosing) 1 each MISCELLANE DAILY PRN PRN Reason: Consult order Home Medications Medication Instructions Recorded Confirmed Last Taken Type aspirin 81 mg tablet,delayed 81 mg PO DAILY 03/03/21 07/10/22 07/09/22 History release (Enteric Coated Aspirin) adalimumab 40 mg/0.4 mL 40 mg subcut MO@0900 03/05/22 07/10/22 07/09/22 History subcutaneous pen kit (Humira(CF) Pen) Physical Exam Vital Signs: Vital Signs: Last Vital Signs Temp 98.4 F 07/10/22 08:11 Pulse 86 07/10/22 10:07 Resp 18 07/10/22 10:07 BP 146/84 H 07/10/22 10:07 Pulse Ox 99 07/10/22 10:07 O2 Del Method 07/10/22 10:07 BMI result Body Mass Index 40.2 In the patient's upper back, there is an erythematous, draining back abscess. The patient's abdomen is obese and soft. In the pannicular fold, there are 3 pinpoint area that have purulence but a larger area of fluctuance is not appreciated. There is no large area of cellulitis involving the panniculus Results Labs Result diagrams: 07/10/22 08:48 07/10/22 08:48 Labs: Abnormal lab results 07/10/22 07/10/22 07/10/22 Range/Units 08:48 08:48 12:17 WBC 14.0 H (4.8-10.8) X10*3/uL Immature Gran % (Auto) 0.6 H (0.0-0.4) % Abs Immat Gran (auto) 0.09 H (0.00-0.03) X10*3/uL Absolute Neuts (auto) 9.3 H (2.0-8.3) x10*3/uL Sodium 133 L (135-145) mmol/L POC Glucose 202 H (60-115) mg/dL Random Glucose 249 H (60-115) mg/dL Short CBC 07/10/22 Range/Units 08:48 WBC 14.0 H (4.8-10.8) X10*3/uL Hgb 15.8 D (14.0-18.0) g/dl Hct 46.7 D (42.0-52.0) % Plt Count 189 D (160-400) X10*3/uL BMP 07/10/22 08:48 Sodium 133 L Potassium 4.2 Chloride 96 Carbon Dioxide 25 BUN 10 Creatinine 0.83 Calcium 8.9 D Liver Function 07/10/22 Range/Units 08:48 Total Bilirubin 0.9 (0.0-1.0) mg/dL AST 26 (5-37) U/L ALT 31 (0-40) U/L Alkaline Phosphatase 97 (39-117) U/L Albumin 3.8 D (3.5-5.0) g/dL All other labs normal. Imaging Abdomen CT scan report/results: report reviewed and image reviewed CT scan - pelvis: report reviewed and image reviewed Assessment and Plan (1) Back abscess: Status: Acute (2) Poorly controlled type 2 diabetes mellitus: Status: Acute (3) Morbid (severe) obesity due to excess calories: Status: Acute (4) Hidradenitis suppurativa: Status: Acute (5) Abdominal wall cellulitis: Status: Acute Plan The case was discussed with Dr. Zambrano who is going to I and D the back abscess and assess the panniculus. Patient will likely be admitted by the hospitalist service for IV antibiotics and better management of his diabetes as well as nicotine cessation counseling. I had a candid discussion with the patient regarding these modifiable behaviors had he remains reticent to except the need to address these issues. I did explain to him that these are likely contributing to his repeat skin infections. He seemed understand. Procedures Date of Service Date of Service: 07/10/22
--- NOTE | 2022-07-10 13:17 | PHA.PROG ---
Admission Date/Time: Indication: Cellulitis Weight in k.717 kg Adjusted body weight in K.447 kg [place] body weight in K.6 kg Obesity Dosing Indication % IBW: 172% Serum Creatinine - Last 168 Hours 07/10/22 08:48 Creatinine 0.83 Estimated CrCl and GFR - Last 168 Hours 07/10/22 08:48 Estim Creat Clear Calc 154.6 Estimated GFR > 60 Vancomycin Loading Dose: 2000 mg Current Vancomycin Dosing Regimen: 1000 mg Q12H Date and Time for next Vancomycin Level to be drawn: 07/11 @ 1200 Pharmacist Comments on Vancomycin Plan: Patient is morbidly obese therefore requires careful monitoring. Patient is schedule to receive a 2g loading dose in the ED. Maintenance dose vancomycin 1000 mg Q12H is scheduled to start 07/11 @ 0200. Vancomycin level is schedule prior to 3rd dose to allow pharmacy to examine level and adjust for potential toxicity, as pharmacy will be close when patient receives 4th dose. Pharmacy to monitor renal function daily. Yuliana Edward PharmD Vancomycin dosing will take advantage of [employer] as a clinical decision support tool that uses Bayesian modeling to calculate individual patient's pharmacokinetic parameters and forecast the patient's drug concentration time course with the target goal AUC 24 range of 400 - 600 mg/L/hr.
[2022-07-10 13:46] LABS: Estimated Average Glucose 260 mg/dL; Hemoglobin A1c % 10.7 %
[2022-07-10 13:48] VITALS: BP 121/75; PULSE 94; RESP 19; TEMP 36.6; O2SAT 99
[2022-07-10 13:50] LABS: C Reactive Protein 1.45 mg/dL (< or = 0.50)
[2022-07-10 15:13] VITALS: BP 173/104; PULSE 104; O2SAT 98
--- NOTE | 2022-07-11 08:20 | PC.NURSE ---
T/W CONTACTED RN FROM YESTERDAY. PT LEFT AMA AFTER SCREAMING AT EVERYONE BECAUSE HE DIDN'T KNOW HE WAS HAVING SURGERY. DR DAVILA NOTIFIED.
--- NOTE | 2024-06-07 10:19 | P.DS_ITS ---
DS: Providers Provider Date of Service: 07/10/22 Date of admission: 07/10/22 13:17 Date of discharge: 07/10/22 Primary care physician: Mohamud Muro MD Consults: 07/10/22 11:29 Consult to General Surgery Stat Consulting Provider: James Awad Reason for consultation: Abdominal wall pain Has provider been notified: Yes DS: Diagnosis Discharge Diagnosis (1) Back abscess: Status: Acute (2) Poorly controlled type 2 diabetes mellitus: Status: Acute (3) Morbid (severe) obesity due to excess calories: Status: Acute (4) Hidradenitis suppurativa: Status: Acute (5) Abdominal wall cellulitis: Status: Acute DS: Summary Hospital Course Hospital Course: HPI: This is a 47-year-old male with a pertinent history of uncontrolled type 2 diabetes mellitus, noncompliant with home medications, tobacco use disorder, hidradenitis suppurativa on Humira (managed by dermatology outpatient), history of perianal abscess co presents to the emergency department for evaluation and management of abdominal wall purulent cellulitis. Patient states he has been having abdominal wall pain with reddish rash that has been worsening over the last 1 week. It is associated with foul smelling purulent drainage. Patient did not try any antibiotics for it. Patient denies systemic complaints including fever, chills, nausea, vomiting, headache, changes in urinary or bowel habits. Patient also has a painful bump on his back which is draining purulent material. Patient states he had a cardiac stent put in 2011 but only takes aspirin. He is not compliant with statin and beta-patricio. Patient states he also does not take any diabetic medications due to cost. Patient has tried quitting cigarette smoking but states it makes him gain weight so he would try does smoke cigarettes than eat. Does not take anything for her blood pressure. Hospital course: Patient was admitted with IV antibiotics. Also initiated on basal plus insulin regimen for uncontrolled diabetes mellitus. General surgery was consulted throughout hospitalization. Patient left against medical advice during hospitalization. Status at Discharge Functional status at discharge: independent ambulation Overall status at discharge: other Time Attestation Discharge Coordination Time (in mins): 10 Quality: Safe Use of Opioids Does Pt have an Active Cancer Diagnosis on the Problem List?: No Quality: Stroke Does the patient have a stroke diagnosis?: No Physical Exam Vital Signs: Vital Signs: Last Vital Signs Temp 97.9 F 07/10/22 13:48 Pulse 104 H 07/10/22 15:13 Resp 19 07/10/22 13:48 BP 173/104 H 07/10/22 15:13 Pulse Ox 98 07/10/22 15:13 O2 Del Method Room Air 07/10/22 15:13 BMI result Body Mass Index 40.2 Middle-aged well-developed male laying in bed in mild distress neck supple, no JVD equal breath sounds bilaterally with no wheezing or crackles appreciated regular rate and rhythm, S1-S2 heard, no murmurs appreciated abdomen is soft, nontender, nondistended, no guarding rigidity, induration, tenderness and erythema present in the hypogastric and iliac regions with multiple purulent draining sites Back: Area of erythema, tenderness and fluctuance present mid upper back patient is awake, alert, oriented to self, place, time and person, no focal motor weakness DS: Data Imaging Chest x-ray: Radiologist's impression: ITS Impressions Abdomen/Pelvis CT 07/10/22 09:46 IMPRESSION: * There is hepatomegaly and diffuse hepatic steatosis. * Cholelithiasis without evidence of cholecystitis. * Pancolonic diverticulosis without diverticulitis. * There is skin thickening, mild subcutaneous tissue edema at the inferior aspect of the abdominal wall pannus. However, no abdominal wall fluid collection/abscess. Discharge Plan Discharge Patient Disposition: Left Against Medical Advice Discharge Diagnosis: Abdominal wall purulent cellulitis in a patient with hidradenitis suppurativa Referrals: Po,Mohamud Lynn MD [Primary Care Provider] - 1 Week Discharge Medications: No Action aspirin [Enteric Coated Aspirin] 81 mg tablet,delayed release (DR/EC) 81 mg PO DAILY cephalexin 500 mg capsule 500 mg PO BID 10 Days Qty: 20 0RF Discharge Orders: Discharge Order (Routine); Ordered 06/07/24 Ordered By: Bety Vallecillo Diet: Low salt diet Activity on Discharge: As tolerated Print Language: Japanese Care Plan Goals: Follow-up with PCP. Follow-up with Dermatology Health Concerns: Hidradenitis suppurativa Type 2 diabetes mellitus with uncontrolled hyperglycemia Morbid obesity Uncontrolled high blood pressure Medication noncompliance Plan of Treatment: Left AMA Assessment: As above Discharge Date/Time: 07/11/22 08:25
== END 2022-07-11 08:25 | disposition left against medical advice (07) | DRG 383 ==
LOC: HO.ED 11:46 → HO.EDOVER 13:40
PROVIDERS: Admitting Provider Student in an Organized Health Care Education/Training Program; Emergency Provider Student in an Organized Health Care Education/Training Program; PCP Internal Medicine; Visit Provider Student in an Organized Health Care Education/Training Program
DX: L03.311 Cellulitis of abdominal wall (principal); E11.65 Type 2 diabetes mellitus with hyperglycemia; I10 Essential (primary) hypertension; L73.2 Hidradenitis suppurativa; I25.10 Atherosclerotic heart disease of native coronary artery without angina pectoris; F17.210 Nicotine dependence, cigarettes, uncomplicated; Z71.6 Tobacco abuse counseling; K21.9 Gastro-esophageal reflux disease without esophagitis; E78.00 Pure hypercholesterolemia, unspecified; E66.01 Morbid (severe) obesity due to excess calories; Z68.41 Body mass index [BMI] 40.0-44.9, adult; Z20.822 Contact with and (suspected) exposure to COVID-19; Z91.120 Patient's intentional underdosing of medication regimen due to financial hardship; Z79.82 Long term (current) use of aspirin; Z79.899 Other long term (current) drug therapy
CPT/HCPCS: 36415; 74176; 80053; 82947; 83036; 83605; 85025; 85610; 86140; 87040; 87635; 93005; 96361; 96365; 96375; 99284; 99285; J0692; J1885; J2543; J3370

== ENCOUNTER → 2022-07-10 13:17 | Outpatient (BNV) | payer BC, SELFPAY | PROVIDERS: Admitting Provider Student in an Organized Health Care Education/Training Program; Emergency Provider Student in an Organized Health Care Education/Training Program; PCP Internal Medicine; Visit Provider Student in an Organized Health Care Education/Training Program | DX: L02.212 Cutaneous abscess of back [any part, except buttock and flank] (principal); E11.65 Type 2 diabetes mellitus with hyperglycemia; E66.01 Morbid (severe) obesity due to excess calories; L73.2 Hidradenitis suppurativa; L03.311 Cellulitis of abdominal wall | CPT/HCPCS: 99238 ==

== ENCOUNTER 2024-01-20 09:22 | Outpatient (AMB) | payer BC, SELFPAY ==
--- NOTE | 2024-01-20 09:28 | MHC.OFFWIV ---
Intake Vital Signs 01/20/24 09:31 Height 6 ft Weight 289 lb BMI 39.2 BP 160/90 H Blood Pressure Location Lt brachial Position Sitting Pulse 104 H Pulse Source Pulse Oximeter Temp 98.0 F Temp Source Temporal Artery Scan Pulse Oximetry (%) 95 Oxygen Delivery Method Room Air Intake Visit Reasons: EP Cyst middle of back Intake Note: pt is here today for cyst middle of back started 1 week ago Patient Tobacco Use Status: Current everyday Tobacco user Allergies No Known Allergies Allergy (Verified 01/20/24 09:34) Do you need a note to return to daycare/school/sports/work: No HPI HPI Comments History of Present Illness Details 48-year-old male presents today complaining of a recurrent abscess the middle of his back. The patient states he had an I and D about a year ago in the same place. The abscess has surrounding erythema and is growing uncomfortable. But the patient states he has had no discharge. [facility] Medical History Axillary hidradenitis suppurativa CAD (coronary artery disease) GERD (gastroesophageal reflux disease) Hypercholesterolemia Hypertension Type 2 diabetes mellitus with hyperglycemia Surgical History Gluteal abscess History of shoulder surgery History of tonsillectomy Left rotator cuff tear Status post hip surgery Stented coronary artery Family History Father Heart attack Social History (Reviewed 07/10/22 @ 13:50 by James Awad MD, [facility], [facility]) Household Members: Family Household Members Other:: 2 Housing: House Do you presently have visiting nurse or other home services: No Alcohol intake: current Alcohol intake frequency: a few times a month Alcohol type: beer Patient Tobacco Use Status: Current everyday Tobacco user Tobacco use type: Cigar Cigarette Packs Per Day: 1 Cigarettes Per Day: 20.0 Years Smoked: started 20 years e-Cigarette/Vaping Use: Never Used Second Hand Smoke Exposure: No service: No Current occupational status: employed Current occupation: right handed Review of Systems Const All systems reviewed & are unremarkable except as noted in HPI and below Physical Exam Vital Signs: Last Vital Signs Temp 98.0 F 01/20/24 09:31 Pulse 104 H 01/20/24 09:31 BP 160/90 H 01/20/24 09:31 Pulse Ox 95 01/20/24 09:31 Oxygen Delivery Method Room Air 01/20/24 09:31 BMI result Body Mass Index 39.2 Skin Lesions: lesion noted (central location in the thoracic are 5 cm erythematous not fluctuant) Office Procedures I&D Drain 69233-Bnewkgol of Skin Abscess, simple (Trunk thoracic region) All charges added?: Procedure code (CPT) selection complete Results Reviewed Results Reviewed: Prior to the I and DI discussed with the patient this was not fluctuant and maybe not be able to drain the lesion yet. We both agreed to try today. This I and D was unsuccessful and I advised some warm compresses and return in about a week when the abscess becomes more fluctuant Assessment & Plan Assessment & Plan (1) Back abscess: Code(s): L02.212 - Cutaneous abscess of back [any part, except buttock] Plan: The patient will continue with warm compresses and return to the clinic in a week for another I and D attempt in the meantime put him on cephalexin for a week. Plan See plan Medications: New cephalexin 500 mg PO BID 10 days 20 caps 0RF Coding Level of Care Code Est Pt Level 3 (58999) Diagnoses Back abscess L02.212 CPT Codes I&D Drain - Drain 1: 59246-Yihopvev of Skin Abscess, simple ([id number])
[2024-01-20 09:31] VITALS: BP 160/90; PULSE 104; TEMP 36.7; O2SAT 95; BMI 39.2
== END 2024-01-20 10:34 | disposition home or self-care (01) ==
PROVIDERS: PCP Internal Medicine; Visit Provider Physician Assistant Medical
DX: L02.212 Cutaneous abscess of back [any part, except buttock and flank] (principal)
CPT/HCPCS: 10060; 99213

== ENCOUNTER 2024-06-07 14:43 | Outpatient (AMB) | payer BC, SELFPAY ==
--- NOTE | 2024-06-07 14:54 | MHC.PC.OV ---
Vital Signs 06/07/24 14:56 Height 6 ft Weight 282 lb BMI 38.2 BP 160/98 H Blood Pressure Location Lt brachial Position Sitting Pulse 103 H Pulse Source Pulse Oximeter Pulse Oximetry (%) 97 Oxygen Delivery Method Room Air Intake Visit Reasons: New Diagnosis of Diabetes Wet Process Technician Required: No Allergies No Known Allergies Allergy (Verified 01/20/24 09:34) Medication List - Last Reconciled 06/07/24 by Nori Cline PA-C aspirin (Enteric Coated Aspirin) 81 mg PO DAILY Tobacco use date assessed: 06/07/24 Dental Screening Dental Screen Date: 06/07/24 Did you have a dental visit in the last 12 months?: Yes Did you have a dental problem in the last 6 months where you did not have access to dental care?: No Was dental information given to patient?: Patient has dentist HPI New Diagnosis of Diabetes HPI Details 49 year old male with past history of hypertension, hypercholesterolemia, tobacco abuse, diabetes mellitus last seen by Dr. Muro 06/2021 coming in for follow up. In review of the notes patient was scheduled for right total knee replacement however this was postponed due to elevated A1c. Patient tells us that he does not regularly follow with a primary care provider and has not been having routine labs. He is unaware his A1c was elevated and is looking to get it under better control to have a knee replacement. He has not seen any other specialists. [facility] Medical History Axillary hidradenitis suppurativa CAD (coronary artery disease) GERD (gastroesophageal reflux disease) Hypercholesterolemia Hypertension Type 2 diabetes mellitus with hyperglycemia Surgical History Gluteal abscess History of shoulder surgery History of tonsillectomy Left rotator cuff tear Status post hip surgery Stented coronary artery Family History Father Heart attack Social History Household Members: Family Household Members Other:: 2 Housing: House Do you presently have visiting nurse or other home services: No Alcohol intake: current Alcohol intake frequency: a few times a month Alcohol type: beer Patient Tobacco Use Status: Current everyday Tobacco user Tobacco use type: Cigar Cigarette Packs Per Day: 1 Cigarettes Per Day: 20.0 Years Smoked: started 20 years e-Cigarette/Vaping Use: Never Used Second Hand Smoke Exposure: No service: No Current occupational status: employed Current occupation: right handed, [employer] Cognitive needs: No Hearing needs: No Vision needs: No Questionnaire PHQ-9 Over the last 2 weeks, how often have you been bothered by any of the following problems? 1. Little interest or pleasure in doing things: not at all 2. Feeling down, depressed, or hopeless: not at all 3. Trouble falling or staying asleep, or sleeping too much: not at all 4. Feeling tired or having little energy: not at all 5. Poor appetite or overeating: not at all 6. Feeling bad about yourself - or that you are a failure or have let yourself or your family down: not at all 7. Trouble concentrating on things, such as reading the newspaper or watching television: not at all 8. Moving or speaking so slowly that other people could have noticed. Or the opposite - being so fidgety or restless that you have been moving around a lot more than usual: not at all 9. Thoughts that you would be better off or of hurting yourself in some way: not at all Total score: 0 Depression Screening Interpretation: Negative Depression Screening Done: Yes 31368 - PHQ-9 Billing: Yes Source: Developed by Drs. Dakota Trivedi, Ele Naik, Yevgeniy Tao and colleagues, with an educational soheila from [employer]. Thrive Questionnaire Date Thrive assessed: 06/03/21 AUDIT C Alcohol Use Questionnaire (AUDIT-C) 1. How often do you have a drink containing alcohol?: Monthly or less 2. How many drinks containing alcohol do you have on a typical day when you are drinking?: 1 or 2 3. How often do you have six or more drinks on one occasion?: Never Total Score: 1 MAITE-7 AMB Questionnaire MAITE-7 Date MAITE - 7 assessed: 06/07/24 Feeling nervous, anxious, or on edge: 0 = Not at all Not being able to stop or control worryin = Not at all Worrying too much about different things: 0 = Not at all Trouble relaxin = Not at all Being so restless that it is hard to sit still: 0 = Not at all Becoming easily annoyed or irritable: 0 = Not at all Feeling afraid as if something awful might happen: 0 = Not at all Total MAITE-7 score (0-4 normal; 5-9 mild; 10-14 moderate; 15-21 severe): 0 Source: Developed by Drs. Dakota Trivedi, Ele Naik, Yevgeniy Tao and colleagues, with an educational soheila from [employer]. Review of Systems Const Denies body aches, Denies chills, Denies fever(s), Denies headache(s) and Denies poor appetite Eyes Reports no additional complaints and Denies change in vision ENT Denies dizziness and Denies headache(s) Card Denies chest pain, Denies lightheadedness and Denies dyspnea Resp Denies dyspnea GI Denies abdominal pain Reports no additional complaints Musc Denies abnormal gait and Reports arthralgias (Right knee) Skin/Breast Reports system reviewed and no additional complaints, except as documented Neuro Denies abnormal gait, Denies dizziness and Denies headache(s) Psych Reports no additional complaints Physical exam (Primary Care) Vital Signs: Last Vital Signs Pulse 103 H 06/07/24 14:56 BP 160/98 H 06/07/24 14:56 Pulse Ox 97 06/07/24 14:56 Oxygen Delivery Method Room Air 06/07/24 14:56 BMI result Body Mass Index 38.2 BMI Assessment/Plan discussion: High BMI High, discussed plan: lifestyle, dietary and physical activity Tobacco/Smoking Status: Tobacco use Status Tobacco use date assessed 06/07/24 06/07/24 15:03 Patient Tobacco Use Status Current everyday Tobacco 06/07/24 14:55 Tobacco use type Cigar 06/07/24 14:55 e-Cigarette/Vaping Use Never Used 06/07/24 14:55 Are you ready to quit: No PHQ-9: PHQ-9 Score PHQ-9: Total score 0 06/07/24 15:47 Depression Screening Interpretation: Negative Thrive Assessment: Date of Thrive Assessment Date Thrive assessed 06/03/21 06/07/24 14:55 Const General: cooperative, healthy appearing, comfortable and no acute distress Orientation/consciousness: patient oriented x3 HENMT Head: Yes normocephalic Ears: hearing grossly normal bilaterally General nose exam: Normal external nose present Eyes General: appearance normal, both eyes and all related structures Conjunctivae: conjunctivae normal Neck Neck: Yes full ROM and Yes no lymphadenopathy Resp Effort & Inspection: normal respiratory effort Auscultation: clear to auscultation bilaterally, no crackles, no rales, no rhonchi and no wheezes Cardio Rate: regular rate Rhythm: regular rhythm Skin General skin exam: no rashes or lesions noted Neuro General: patient oriented x3 Gait exam (Neuro): Normal gait present Extrem General: Yes normal to inspection, Yes full ROM and No edema Psych Affect: normal affect Attitude: cooperative Insight: Good insight present (Psych) Judgement: Good judgement present (Psych) Results AMB Hemoglobin A1c AMB Hemoglobin A1c 11.0 % Last Edit by CHANDRIKA Slade on 06/07/24 15:05 Results Reviewed Results Reviewed: Laboratory Last Values Hgb A1c (Clinic) 11.0 % (4.0-6.0) H 06/07/24 15:03 Assessment and Plan Assessment & Plan (1) Type 2 diabetes mellitus with hyperglycemia: Code(s): E11.65 - Type 2 diabetes mellitus with hyperglycemia Plan: A1c in the office today is 11.0%. Patient declines referral to endocrinology at this time. He is also declining any kind of injectable treatment including insulin or GLP 1 and is also declining to take regular blood sugars via finger prick. He is declining metformin. Discussed at length possible treatment options in the importance of lowering the A1c patient has agreed to trial Jardiance for diabetes management. Patient is not a good candidate for sulfonylureas due to inconsistent meals and lack of blood sugar monitoring. We will follow up in 3 months for repeat A1c and additional blood work. Recommended Podiatry and optometry referral which patient has declined at this time. Decrease the amount of carbohydrates such as pasta, bread, rice, and potatoes and limit the amount of sweets. Although fruits are generally healthy they should be eaten in moderation as they are still high in sugar. Hemoglobin A1c goal of less than 7%. (2) Morbid (severe) obesity due to excess calories: Code(s): E66.01 - Morbid (severe) obesity due to excess calories Plan: Discussed diet and exercise. (3) Tobacco abuse: Code(s): Z72.0 - Tobacco use Plan: Discussed smoking cessation patient is not interested at this time. Recommended annual lung cancer screening which was declined. (4) Hypertension: Code(s): I10 - Essential (primary) hypertension Qualifiers: Hypertension type: essential hypertension Qualified Code(s): I10 - Essential (primary) hypertension Plan: Blood pressure elevated while in the office today. Discussed possible treatments which is deferred at this time. Avoid salt intake and encourage healthy diet and regular exercise. Advised patient to take blood pressures at home. (5) Right knee pain: Code(s): M25.561 - Pain in right knee Plan: Patient having right knee pain in and total knee replacement has been postponed due to elevated A1c. Patient requesting refill of muscle relaxer as this helped with pain and mobility. Plan Reminded patient about colon cancer screening which was declined at this visit. This note was constructed using voice recognition software. While every effort has been made to ensure accuracy and integration specialist, still areas may have been included sometimes these areas may affect the content or meeting of the given symptoms. Total time spent caring for the patient today was 35 minutes. This includes time spent before the visit reviewing the chart, time spent during the visit, and time spent after the visit and documentation. Orders: Orders AMB Hemoglobin A1c Today E11.65 - Type 2 diabetes mellitus with hyperglycemia Complete Blood Count Auto Diff Today Z00.00 - Encounter for general adult medical examination without abnormal findings Free T4 (Free Thyroxine) Today Z00.00 - Encounter for general adult medical examination without abnormal findings TSH reflex Free T4 Today Z00.00 - Encounter for general adult medical examination without abnormal findings Lipid Panel Today Z00.00 - Encounter for general adult medical examination without abnormal findings Vitamin B12 and Folate Today Z00.00 - Encounter for general adult medical examination without abnormal findings Vitamin D 25-OH (D2 and D3) Today Z00.00 - Encounter for general adult medical examination without abnormal findings Comprehensive Met. Panel Today Z00.00 - Encounter for general adult medical examination without abnormal findings Prostate Specific Antigen Scr Today Z00.00 - Encounter for general adult medical examination without abnormal findings Medications: New cyclobenzaprine 5 mg PO BEDTIME PRN 30 tabs 0RF muscle spasm empagliflozin (Jardiance) 10 mg PO DAILY 30 tabs 2RF Coding Level of Care Code Est Pt Level 4 (73911) Diagnoses Type 2 diabetes mellitus with hyperglycemia E11.65 Morbid (severe) obesity due to excess calories E66.01 Tobacco abuse Z72.0 Essential hypertension I10 Hypertension type: essential hypertension Right knee pain M25.561
[2024-06-07 14:56] VITALS: BP 160/98; PULSE 103; O2SAT 97; BMI 38.2
== END 2024-06-07 15:45 | disposition home or self-care (01) ==
PROVIDERS: PCP Internal Medicine
DX: E11.65 Type 2 diabetes mellitus with hyperglycemia (principal)
CPT/HCPCS: 83036; 99214

== ENCOUNTER 2024-09-07 08:09 | Outpatient (AMB) | payer BC, SELFPAY ==
[2024-09-07 08:11] VITALS: BP 150/88; PULSE 91; O2SAT 98; BMI 37.6
--- NOTE | 2024-09-07 08:11 | MHC.PC.OV ---
Vital Signs 09/07/24 08:11 Height 6 ft Weight 277 lb 0.6 oz BMI 37.6 BP 150/88 H Blood Pressure Location Lt brachial Position Sitting Pulse 91 Pulse Source Pulse Oximeter Pulse Oximetry (%) 98 Oxygen Delivery Method Room Air Intake Visit Reasons: f/u DM Vocational Rehabilitation Technician Required: No Allergies metformin Adverse Reaction (Mild, Uncoded 09/07/24 08:53) Diarrhea Medication List - Last Reconciled 09/07/24 by Nori Cline PA-C aspirin (Enteric Coated Aspirin) 81 mg PO DAILY cyclobenzaprine 5 mg PO BEDTIME PRN empagliflozin (Jardiance) 10 mg PO DAILY Tobacco use date assessed: 06/07/24 Dental Screening Dental Screen Date: 06/07/24 HPI f/u DM HPI Details 49 year old male with past history of hypertension, hypercholesterolemia, tobacco abuse, diabetes mellitus last seen 06/2024 coming in for follow up. Patient states he is awaiting a total knee replacement and was told by his surgeon his A1c needed to be below 10%. He states he has not changed his diet or exercise habits as he is still unable to exercise due to knee pain. No concerns today. [facility] Medical History Back abscess Type 2 diabetes mellitus with hyperglycemia Axillary hidradenitis suppurativa GERD (gastroesophageal reflux disease) Hypercholesterolemia CAD (coronary artery disease) Hypertension Surgical History Gluteal abscess Status post hip surgery Left rotator cuff tear History of tonsillectomy History of shoulder surgery Stented coronary artery Family History Father Heart attack Social History Household Members: Family Household Members Other:: 2 Housing: House Do you presently have visiting nurse or other home services: No Alcohol intake: current Alcohol intake frequency: a few times a month Alcohol type: beer Patient Tobacco Use Status: Current everyday Tobacco user Tobacco use type: Cigar Cigarette Packs Per Day: 1 Cigarettes Per Day: 20.0 Years Smoked: started 20 years e-Cigarette/Vaping Use: Never Used Second Hand Smoke Exposure: No service: No Current occupational status: employed Current occupation: right handed, [employer] Cognitive needs: No Hearing needs: No Vision needs: No Questionnaire Thrive Questionnaire Date Thrive assessed: 06/03/21 AUDIT C Alcohol Use Questionnaire (AUDIT-C) 1. How often do you have a drink containing alcohol?: Monthly or less 2. How many drinks containing alcohol do you have on a typical day when you are drinking?: 1 or 2 3. How often do you have six or more drinks on one occasion?: Never Total Score: 1 MAITE-7 AMB Questionnaire MAITE-7 Date MAITE - 7 assessed: 06/07/24 Source: Developed by Drs. Dakota Trivedi, Ele Naik, Yevgeniy Tao and colleagues, with an educational soheila from [employer]. Review of Systems Const Denies body aches, Denies chills, Denies fever(s) and Denies headache(s) ENT Denies headache(s) Card Denies chest pain and Denies dyspnea Resp Denies dyspnea GI Reports no additional complaints Reports no additional complaints Musc Details: Right knee pain Skin/Breast Reports system reviewed and no additional complaints, except as documented Neuro Reports no additional complaints and Denies headache(s) Psych Reports no additional complaints Endo Reports no additional complaints Physical exam (Primary Care) Vital Signs: Last Vital Signs Pulse 91 09/07/24 08:11 BP 150/88 H 09/07/24 08:11 Pulse Ox 98 09/07/24 08:11 Oxygen Delivery Method Room Air 09/07/24 08:11 BMI result Body Mass Index 37.6 Tobacco/Smoking Status: Tobacco use Status Tobacco use date assessed 06/07/24 09/07/24 08:20 Patient Tobacco Use Status Current everyday Tobacco 09/07/24 08:20 Tobacco use type Cigar 09/07/24 08:20 e-Cigarette/Vaping Use Never Used 09/07/24 08:20 Thrive Assessment: Date of Thrive Assessment Date Thrive assessed 06/03/21 09/07/24 08:20 Const General: cooperative, healthy appearing, comfortable and no acute distress Orientation/consciousness: patient oriented x3 HENMT Head: Yes normocephalic Ears: hearing grossly normal bilaterally General nose exam: Normal external nose present Eyes General: appearance normal, both eyes and all related structures Conjunctivae: conjunctivae normal Neck Neck: Yes full ROM and Yes no lymphadenopathy Resp Effort & Inspection: normal respiratory effort Auscultation: clear to auscultation bilaterally, no crackles, no rales, no rhonchi and no wheezes Cardio Rate: regular rate Rhythm: regular rhythm Skin General skin exam: no rashes or lesions noted Neuro General: patient oriented x3 Gait exam (Neuro): Normal gait present Extrem General: Yes normal to inspection, Yes full ROM and No edema Psych Affect: normal affect Attitude: cooperative Insight: Good insight present (Psych) Judgement: Good judgement present (Psych) Results AMB Hemoglobin A1c AMB Hemoglobin A1c 8.1 % Last Edit by CHANDRIKA Slade on 09/07/24 08:23 Results Reviewed Results Reviewed: Laboratory Last Values Hgb A1c (Clinic) 8.1 % (4.0-6.0) H 09/07/24 08:09 Coding Level of Care Code Est Pt Level 3 (42970) Diagnoses Right knee pain M25.561 Type 2 diabetes mellitus with hyperglycemia E11.65 Hypercholesterolemia E78.00 Essential hypertension I10 Hypertension type: essential hypertension Class 3 severe obesity due to excess calories with serious comorbidity and body mass index (BMI) of 40.0 to 44.9 in adult E66.01; Z68.41 Obesity type: due to excess calories Obesity classification: adult class 3 (BMI >= 40) Serious obesity comorbidity presence: with serious comorbidity Body mass index: BMI 40.0-44.9 Assessment & Plan Assessment & Plan (1) Right knee pain: Code(s): M25.561 - Pain in right knee Category: Medical Plan: Patient continues to have pain in the right knee and we will follow up with his Orthopedics for possible placement. (2) Type 2 diabetes mellitus with hyperglycemia: Code(s): E11.65 - Type 2 diabetes mellitus with hyperglycemia Category: Medical Plan: Decrease the amount of carbohydrates such as pasta, bread, rice, and potatoes and limit the amount of sweets. Although fruits are generally healthy they should be eaten in moderation as they are still high in sugar. Hemoglobin A1c goal of less than 7%. A1c 8.1% on exam today advised increasing Jardiance to 25 mg which was declined. Patient states he is going to discontinue the Jardiance once the total knee replacement is completed. Strongly advised to continue on the Jardiance 10 mg and advised three-month follow up for repeat A1c which was declined. (3) Hypercholesterolemia: Code(s): E78.00 - Pure hypercholesterolemia, unspecified Category: Medical Plan: Avoid foods that are high in cholesterol such as red meat, fried foods, eggs and baked goods. Triglyceride goal of less than 150 and LDL goal of less than 100. Not currently on medical management and has been declining repeat labs. Cholesterol labs ordered and strongly advised patient to have blood work completed. (4) Hypertension: Code(s): I10 - Essential (primary) hypertension Category: Medical Qualifiers: Hypertension type: essential hypertension Qualified Code(s): I10 - Essential (primary) hypertension Plan: Blood pressure elevated on exam again today. Strongly advised patient to consider medical management which was declined. Discussed the risk of uncontrolled blood pressure, cholesterol and diabetes and patient is aware of the risks in his continuation declined medical treatment. (5) Obesity: Code(s): E66.9 - Obesity, unspecified Category: Medical Qualifiers: Obesity type: due to excess calories Obesity classification: adult class 3 (BMI >= 40) Serious obesity comorbidity presence: with serious comorbidity Body mass index: BMI 40.0-44.9 Qualified Code(s): E66.01 - Morbid (severe) obesity due to excess calories; Z68.41 - Body mass index [BMI]40.0-44.9, adult Plan: Healthy diet and regular exercise is encouraged. Plan Patient declining all screening blood work and routine screenings for his age. Patient declining colonoscopy and Cologuard as well despite strong recommendation to undergo this procedure. This note was constructed using voice recognition software. While every effort has been made to ensure accuracy and supervisor poultry processing, still areas may have been included sometimes these areas may affect the content or meeting of the given symptoms. Total time spent caring for the patient today was 20 minutes. This includes time spent before the visit reviewing the chart, time spent during the visit, and time spent after the visit and documentation. Orders: Orders AMB Hemoglobin A1c Today E11.65 - Type 2 diabetes mellitus with hyperglycemia
== END 2024-09-07 08:49 | disposition home or self-care (01) ==
LOC: HO.HMCH 08:10
PROVIDERS: PCP Internal Medicine
DX: M25.561 Pain in right knee (principal); E11.65 Type 2 diabetes mellitus with hyperglycemia; E66.01 Morbid (severe) obesity due to excess calories; Z68.41 Body mass index [BMI] 40.0-44.9, adult; E78.00 Pure hypercholesterolemia, unspecified; I10 Essential (primary) hypertension

== ENCOUNTER → 2024-09-07 08:09 | Outpatient (BNVA) | payer BC, SELFPAY | PROVIDERS: PCP Internal Medicine | DX: M25.561 Pain in right knee (principal); E11.65 Type 2 diabetes mellitus with hyperglycemia; E78.00 Pure hypercholesterolemia, unspecified; I10 Essential (primary) hypertension; E66.01 Morbid (severe) obesity due to excess calories; Z68.41 Body mass index [BMI] 40.0-44.9, adult | CPT/HCPCS: 83036 ==

== ENCOUNTER 2025-04-06 09:46 | Outpatient (AMB) | payer BC, SELFPAY ==
--- NOTE | 2025-04-06 09:51 | A.OFFPC_ITS ---
Vital Signs 04/06/25 09:52 04/06/25 10:22 Height 6 ft Weight 263 lb 6 oz BMI 35.7 BP 140/84 H 144/80 H Blood Pressure Location Lt brachial Lt brachial Position Sitting Sitting Pulse 102 H Pulse Source Pulse Oximeter Temp 97.3 F Temp Source Temporal Artery Scan Pulse Oximetry (%) 98 Oxygen Delivery Method Room Air Intake Visit Reasons: PE Chief Administrative Officer Required: No Accompanied by: Self / Same As Patient Allergies No Known Allergies Allergy (Verified 04/06/25 09:59) Medication List - Last Reconciled 04/06/25 by Mohamud Muro MD aspirin (Enteric Coated Aspirin) 81 mg PO DAILY empagliflozin (Jardiance) 10 mg PO DAILY naproxen sodium (Aleve) 220 mg PO BID PRN Tobacco use date assessed: 04/06/25 Dental Screening Dental Screen Date: 04/06/25 Did you have a dental visit in the last 12 months?: No Did you have a dental problem in the last 6 months where you did not have access to dental care?: No Was dental information given to patient?: Patient declined HPI PE HPI Details cdeclined lung cancer screening. decline bloodw ork. eye examine- [facility] Medical History Back abscess Type 2 diabetes mellitus with hyperglycemia Axillary hidradenitis suppurativa GERD (gastroesophageal reflux disease) Hypercholesterolemia CAD (coronary artery disease) Hypertension Surgical History Gluteal abscess Status post hip surgery Left rotator cuff tear History of tonsillectomy History of shoulder surgery Stented coronary artery Family History Father Heart attack Social History (Updated 04/06/25 @ 10:27 by Mohamud Muro MD) Household Members: Family Household Members Other:: 2 Housing: House Do you presently have visiting nurse or other home services: No Alcohol intake: current Alcohol intake frequency: a few times a month Alcohol type: beer Comment: 1-2 shots /month Patient Tobacco Use Status: Current everyday Tobacco user Tobacco use type: Cigar Cigarette Packs Per Day: 1 Cigarettes Per Day: 20.0 Years Smoked: started 20 years, still smoking 04/2025 e-Cigarette/Vaping Use: Never Used Second Hand Smoke Exposure: No service: No Current occupational status: employed Current occupation: right handed, [employer] Cognitive needs: No Hearing needs: No Vision needs: No Questionnaire PHQ-9 Over the last 2 weeks, how often have you been bothered by any of the following problems? 1. Little interest or pleasure in doing things: not at all 2. Feeling down, depressed, or hopeless: not at all 3. Trouble falling or staying asleep, or sleeping too much: not at all 4. Feeling tired or having little energy: not at all 5. Poor appetite or overeating: not at all 6. Feeling bad about yourself - or that you are a failure or have let yourself or your family down: not at all 7. Trouble concentrating on things, such as reading the newspaper or watching television: not at all 8. Moving or speaking so slowly that other people could have noticed. Or the opposite - being so fidgety or restless that you have been moving around a lot more than usual: not at all 9. Thoughts that you would be better off or of hurting yourself in some way: not at all Total score: 0 Depression Screening Interpretation: Negative Depression Screening Done: Yes 74858 - PHQ-9 Billing: Yes Source: Developed by Drs. Dakota Trivedi, Ele Naik, Yevgeniy Tao and colleagues, with an educational soheila from [employer]. Thrive Questionnaire Date Thrive assessed: 04/06/25 I am a: Patient What is your living situation today?: I have a steady place to live Within the past 12 months, did the food you bought not last and you didn't have the money to get more?: Never true Within the past 12 months, did you worry whether your food would run out before you got money to buy more?: Never true Do you have trouble paying for medicines?: No Do you have trouble getting transportation to medical appointments?: No Do you have trouble paying your heating and electricity bill?: No Do you have trouble taking care of your child, family member or friend?: No Do you have trouble with day-to-day activities such as bathing, preparing meals, shopping, managing finances, etc.?: No Are you currently unemployed and looking for a job?: No Are you interested in more education?: No Please select the resources that you would like help with: None Currently or been in a relationship where the following occur: No concerns reported THRIVE Score: 0 AUDIT C Alcohol Use Questionnaire (AUDIT-C) 1. How often do you have a drink containing alcohol?: Monthly or less 2. How many drinks containing alcohol do you have on a typical day when you are drinking?: 1 or 2 3. How often do you have six or more drinks on one occasion?: Never Total Score: 1 MAITE-7 AMB Questionnaire MAITE-7 Date MAITE - 7 assessed: 04/06/25 Feeling nervous, anxious, or on edge: 0 = Not at all Not being able to stop or control worryin = Not at all Worrying too much about different things: 0 = Not at all Trouble relaxin = Not at all Being so restless that it is hard to sit still: 0 = Not at all Becoming easily annoyed or irritable: 0 = Not at all Feeling afraid as if something awful might happen: 0 = Not at all Total MAITE-7 score (0-4 normal; 5-9 mild; 10-14 moderate; 15-21 severe): 0 Source: Developed by Drs. Dakota Trivedi, Ele Naik, Yevgeniy Tao and colleagues, with an educational soheila from [employer]. MAITE-7 Assessment Billing MAITE-7 Assessment Tool: MAITE-7 Assessment 43413 Review of Systems Const Denies poor appetite and Denies weakness Eyes Denies no additional complaints ENT Reports Normal hearing present, Denies dizziness, Denies nasal congestion, Denies tinnitus and Denies sore throat Card Denies chest pain, Denies syncope, Denies rapid heart rate and Denies dyspnea Resp Denies cough and Denies dyspnea GI Denies change in stool character, Reports constipation, Denies diarrhea, Denies nausea and Denies vomiting Denies dysuria and Denies urinary frequency Neuro Reports Normal hearing present, Denies confusion, Denies dizziness, Denies syncope and Denies weakness Psych Denies confusion Physical exam (Primary Care) Vital Signs: Last Vital Signs Temp 97.3 F 04/06/25 09:52 Pulse 102 H 04/06/25 09:52 BP 144/80 H 04/06/25 10:22 Pulse Ox 98 04/06/25 09:52 Oxygen Delivery Method Room Air 04/06/25 09:52 BMI result Body Mass Index 35.7 Tobacco/Smoking Status: Tobacco use Status Tobacco use date assessed 04/06/25 04/06/25 10:02 Patient Tobacco Use Status Current everyday Tobacco 04/06/25 10:27 Tobacco use type Cigar 04/06/25 10:27 e-Cigarette/Vaping Use Never Used 04/06/25 10:27 PHQ-9: PHQ-9 Score PHQ-9: Total score 0 04/06/25 10:20 Depression Screening Interpretation: Negative Thrive Assessment: Date of Thrive Assessment Date Thrive assessed 04/06/25 04/06/25 10:02 Currently or been in a relationship where the following occur: No concerns reported Const General: No confusion Orientation/consciousness: No confusion HENMT Head: Yes normocephalic Ears: external ears normal and TM's normal bilaterally Face and sinus: Yes normal facial exam Mouth: moist mucous membranes Throat: Yes tonsils normal Eyes Conjunctivae: conjunctivae normal Pupils: Equal, round and reactive pupils present and Pupil accommodation reflex normal Direct Ophthalmoscopy: normal light reflex Neck Neck: No lymphadenopathy Thyroid: Thyroid normal Chest Chest palpation & inspection: normal inspection of the chest Resp Effort & Inspection: normal respiratory effort and no audible wheezes Auscultation: clear to auscultation bilaterally, no crackles, no wheezes and lung sounds not diminished Cardio Rate: regular rate Rhythm: regular rhythm Peripheral pulses: radial pulses present and dorsalis pedis present GI Palpation (GI): no masses Auscultation: normal bowel sounds and normoactive bowel sounds Rectal Exam - Male: Yes deferred Skin General skin exam: no rashes or lesions noted Rashes: no rashes Neuro General: No confusion Cranial nerves: Yes Equal, round and reactive pupils present and Yes Normal hearing present Cognition (Neuro): normal cognition Gait exam (Neuro): Normal gait present Motor exam (neuro): 5/5 motor strength present throughout Deep tendon reflexes (DTR's): Right brachioradialis reflex intensity grade: 2+, Left brachioradialis reflex intensity grade: 2+, Right patellar reflex intensity grade: 2+ and Left patellar reflex intensity grade: 2+ Extrem General: No edema Coding Level of Care Code Est Pt Prev Care 40-64y(90509) Diagnoses Annual physical exam Z00.00 Tobacco abuse Z72.0 Essential hypertension I10 Hypertension type: essential hypertension Hypercholesterolemia E78.00 Type 2 diabetes mellitus with hyperglycemia E11.65 S/P total knee arthroplasty Z96.659 Colonoscopy refused Z53.20 Tinea pedis B35.3 Additional Codes MAITE-7 Assessment Billing - MAITE-7 Assessment Tool: MAITE-7 Assessment 46726 ([id number]) PHQ-9 - 55429 - PHQ-9 Billing: Yes ([id number]) Assessment & Plan Assessment & Plan (1) Annual physical exam: Code(s): Z00.00 - Encounter for general adult medical examination without abnormal findings Category: Medical Plan: Patient is advised to eat healthy, keep well hydrated, keep active and have adequate sleep. (2) Tobacco abuse: Code(s): Z72.0 - Tobacco use Category: Medical Plan: Patient is strongly advised to stop smoking (3) Hypertension: Code(s): I10 - Essential (primary) hypertension Category: Medical Qualifiers: Hypertension type: essential hypertension Qualified Code(s): I10 - Essential (primary) hypertension Plan: Patient needs to be started on blood pressure medication again (4) Hypercholesterolemia: Code(s): E78.00 - Pure hypercholesterolemia, unspecified Category: Medical Plan: Avoid fried foods, chicken skin, eggs, butter margarine, pastries and meat. Be it pork or beef they have a lot of cholesterol LDL goal of less than 100 and triglyceride of less than 150 patient needs blood work (5) Type 2 diabetes mellitus with hyperglycemia: Code(s): E11.65 - Type 2 diabetes mellitus with hyperglycemia Category: Medical Plan: Decrease the amount of carbohydrate intake, pasta, bread, rice and potatoes are all sugar and that is aside from all the sweet stuff, remember that fruits are good but they are Sweet also. Hemoglobin A1c goal of less than 6.5 presently on Jardiance only (6) S/P total knee arthroplasty: Comment: Right October 2024 dr. Pete Code(s): Z96.659 - Presence of unspecified artificial knee joint Category: Surgical Plan: Continue to follow up with orthopedics (7) Colonoscopy refused: Code(s): Z53.20 - Procedure and treatment not carried out because of patient's decision for unspecified reasons Category: Medical (8) Tinea pedis: Code(s): B35.3 - Tinea pedis Category: Medical Plan History of Present Illness The patient is a 50-year-old male presenting for a physical examination. He has experienced a weight loss of 14 pounds. Known past medical conditions include hypertension, hypercholesterolemia, obesity, and Diabetes Mellitus Type 2, for which he takes Jardiance with an A1c target of under 7%. He has a history of smoking and previous ischemic heart event in 2011. The patient underwent a right knee replacement in October 2024 and has seen changes in gait due to osteoarthritis. Additionally, he reports issues with foot fungus. Financial constraints limit his ability to maintain a healthy diet. He demonstrates reluctance toward preventive screenings and multiple medication changes due to prior familial experiences. He denies experiencing dizziness, nausea, or blood in stool, amongst other potential complications and symptoms associated with his medical history. Health Maintenance - Patient advised to discontinue smoking to reduce cardiovascular risk and long- term complications. - Hemoglobin A1c target set at <7% for diabetes management. - LDL cholesterol target of <130 mg/dL and triglycerides of <150 mg/dL. - Colonoscopy mentioned as due but declined by the patient. - Recommend annual eye examination, noted as declined by the patient. - Blood pressure management with the consideration of restarting medication. - Shingles vaccination discussed but not initiated. - Cardiovascular health discussed, with emphasis on potential benefits of cholesterol management and aspirin cessation consideration due to bleeding risk. 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 - Housing: Shared financial responsibility for family home, particularly after father?s passing. - Substance Use: Smokes and consumes alcohol infrequently; resistant to smoking cessation. - Diet: Reports dietary challenges linked to financial constraints, leading to suboptimal nutrition. - Family: Supports family household, financially impacted by parental . - Exercise: Engages in physical activity consistently due to occupational requirements. Review of Systems - Constitutional: Denies fever, chills. - Cardiovascular: Denies chest pain, palpitations. - Respiratory: No shortness of breath. - Gastrointestinal: Denies nausea, vomiting; no blood in stools. - Genitourinary: Reports frequent nighttime urination; denies dysuria. - Musculoskeletal: Reports altered gait post-knee replacement; mentions foot fungus. - Neurological: Denies dizziness or fainting. - Ophthalmological: No concerns raised, uses readers for detailed work. Physical Exam General: Cooperative, healthy appearing, comfortable, no acute distress, and well developed Orientation: Patient oriented x3 Limitations: No limitations Head: Normal to inspection Ears: Hearing grossly normal bilaterally Nose: Normal external nose present Face and sinus: Normal facial exam Eyes: Appearance normal, both eyes and all related structures Neck: Normal visual inspection and Yes full ROM Respiratory: Normal respiratory effort and able to speak in complete sentences. Clear to auscultation bilaterally Cardiovascular: Regular rate and rhythm. Normal S1 and S2 GI: Normal to inspection. Soft to palpation and nontender Skin: No rashes or lesions noted, but skin tightness present Neuro: Patient oriented x3 Extremities: Normal to inspection, but foot fungus noted between toes Results - Cardiac stress test (October 2024): Normal myocardial perfusion; ejection fraction at 54%. Plan The ongoing management of chronic conditions is focused on adjusting hypotensive medication and optimizing lipid levels while encouraging lifestyle modifications, especially concerning diet and cessation of smoking. Jardiance will see an increased dosage to maintain optimal A1c levels. Preventive care measures such as colonoscopy and eye exams were discussed but declined by the patient. Diabetes-friendly dietary recommendations were reiterated considering the patient's financial constraints impacting food choices. Further, managing the foot and nail fungus with antifungal medication is suggested, providing symptomatic relief for discomfort due to dermatological concerns. Despite a generally increased resistance to suggested further medical interventions, the outlined plan aims to optimize the patient?s existing condition management while minimizing potential long-term complications. Patient was informed and verbally consented to the use of an ambient scribe for clinic note documentation during this visit. Discussion Notes Throughout the consultation, I discussed the management options for hypertension, diabetes, and hypercholesterolemia with the patient. We agreed on increasing the Jardiance dosage due to its positive effect on glucose control. The benefits of regular screening and preventive care measures, such as eye exams and colonoscopy, were highlighted, but the patient opted not to proceed with them. Together, we discussed cholesterol goals and the importance of smoking cessation to significantly lower cardiovascular risks, though the patient expressed minimal interest in adjusting current lifestyle habits. Nutritional challenges discussed emphasize the need for budget-conscious meal planning, aligned with his health goals and financial situation. The implications of his family history on his health, particularly cardiac risks, were reviewed, as well as the non-necessity of aspirin for cardiac patent management, given no current indicators for therapy initiation. I emphasized the importance of maintaining communication for monitoring progress in between scheduled appointments. Patient Instructions - Monitor blood pressure regularly. - Maintain regular follow-ups for diabetes management; medication adjustment of Jardiance will occur. - Apply antifungal cream to affected foot areas as directed. - Aim to reduce smoking and consider cessation strategies. - Consider budget-friendly healthy meal options. - Continue wearing and evaluating supportive foot insoles for knees and post- surgery management. - Notify of any new or worsening symptoms immediately. - Seek medical attention promptly if experiencing unusual symptoms. Orders: Orders Lipid Panel Today E11.65 - Type 2 diabetes mellitus with hyperglycemia, E78.00 - Pure hypercholesterolemia, unspecified Vitamin B12 and Folate Today E11.65 - Type 2 diabetes mellitus with hyperglycemia Creatinine Urine Today E11.65 - Type 2 diabetes mellitus with hyperglycemia Microalbumin, Random (w Creat) Today E11.65 - Type 2 diabetes mellitus with hyperglycemia Complete Blood Count Auto Diff Today E11.65 - Type 2 diabetes mellitus with hyperglycemia Comprehensive Met. Panel Today E11.65 - Type 2 diabetes mellitus with hyperglycemia Free T4 (Free Thyroxine) Today E11.65 - Type 2 diabetes mellitus with hyperglycemia Thyroid Stimulating Hormone Today E11.65 - Type 2 diabetes mellitus with hyperglycemia Prostate Specific Antigen Scr Today E11.65 - Type 2 diabetes mellitus with hyperglycemia Hemoglobin A1c Today E11.65 - Type 2 diabetes mellitus with hyperglycemia Medications: Changed From empagliflozin (Jardiance) 10 mg PO DAILY 30 tabs 2RF E11.65 - Type 2 diabetes mellitus with hyperglycemia To empagliflozin 25 mg PO DAILY 90 tabs 2RF E11.65 - Type 2 diabetes mellitus with hyperglycemia
[2025-04-06 09:52] VITALS: BP 140/84; PULSE 102; TEMP 36.3; O2SAT 98; BMI 35.7
[2025-04-06 10:22] VITALS: BP 144/80
--- OUTSIDE RECORDS SUMMARY | 2025-04-06 10:25 | XMS_ITS | Encounter Summary ---
Author Organization [facility] Address [address] [place] [address] Care Team Providers Care Targeteer Name Role Phone Mohamud Muro Primary Care Provider [phone] Reason for Visit * Reason Onset Date Comments CS - Urgent Appointment 11/03/2022 Encounter Details Date Type Department Care Team (Late st Contact Info) Description 11/03/2022 Telephone [facility] Central Scheduling Department [address] [place] [address] Telephone Intake, Staff CS - Urgent Appointment Social History Tobacco Use Types Packs/Day Years Used Date Smoking Tobacco: Never Assessed Sex and Gender Information Value Date Recorded Sex Assigned at Not on file Legal Sex Male 10:08 AM EST Gender Identity Not on file Sexual Orientation Not on file documented as of this encounter Miscellaneous Notes * Telephone Encounter - Briana Little - 11/03/2022 2:41 PM EST Images from the original note were not included. Patient calling to schedule (NEW PT) appt Re: Hidradenitis suppurativa DT = Within 1 week (no avail) do not Schedule FYI: pt works 3rd shift but could not give me best times to reach him. Ok to leave a message if no answer - per pt Callback# documented in this encounter Plan of Treatment Not on file documented as of this encounter Visit Diagnoses Not on filedocumented in this encounter Care Teams Targeteer Relationship Specialty Start Date End Date Mohamud Muro [address] [place] [address] [place] [address] PCP - General Internal Medicine 11/03/22 documented as of this encounter
== END 2025-04-06 10:46 | disposition home or self-care (01) ==
LOC: HO.HMCH 09:47
PROVIDERS: PCP Internal Medicine; Visit Provider Internal Medicine
DX: Z00.00 Encounter for general adult medical examination without abnormal findings (principal); E11.65 Type 2 diabetes mellitus with hyperglycemia; Z72.0 Tobacco use; I10 Essential (primary) hypertension; E78.00 Pure hypercholesterolemia, unspecified; Z96.659 Presence of unspecified artificial knee joint; Z53.20 Procedure and treatment not carried out because of patient's decision for unspecified reasons; B35.3 Tinea pedis

== ENCOUNTER → 2025-04-06 09:46 | Outpatient (BNVA) | payer BC, SELFPAY | PROVIDERS: PCP Internal Medicine; Visit Provider Internal Medicine | DX: Z00.00 Encounter for general adult medical examination without abnormal findings (principal); I10 Essential (primary) hypertension; E78.00 Pure hypercholesterolemia, unspecified; E11.65 Type 2 diabetes mellitus with hyperglycemia; B35.3 Tinea pedis; F17.290 Nicotine dependence, other tobacco product, uncomplicated; Z53.20 Procedure and treatment not carried out because of patient's decision for unspecified reasons; Z96.659 Presence of unspecified artificial knee joint | CPT/HCPCS: 96127 ==